=== PATIENT | male | born 1965 | race Caucasian/White ===

== ENCOUNTER 2016-09-30 22:58 | Inpatient (IN) ==
[2016-09-30] MEDS ORDERED: methylPREDNISolone SOD SUC 125 MG/2 ML VIAL IV STA (23:44)
--- NOTE | 2016-09-30 23:58 | Emergency Department Note ---
Arrival - Arrival Chief Complaint: Syncope Stated Complaint: sob, syncope, dizzy ED Nursing Triage Note: Patient to room via ems. EMS states that they were called for differculty breathing. They state that then first responders on scence told ems that patient was unresponsive. upon ems arrival EMT-P states patient was moving eyes around and when arm was picked up it went to the side and did not hit his face. patient has ETOH on board and is currently out of his medications. patient is complaining of being dizzy, having bodyaches, and body cramps. Mode of Arrival: Stretcher Limitations: No Limitations Source: Patient, Family Time Seen by Provider: 09/30/16 23:12 - History of Present Illness HPI Narrative: The patient complains of a syncopal episode tonight around 830. States he got up from the table, became short of breath and passed out for an undetermined time. The states he was "in and out of it." The patient has had problems with similar episodes for approximately 5 years. No known diagnosis. He did have some vomiting today at lunch and some cramping and muscle spasms shortly after that. He has a history of COPD and also had to take several nebulizers today. He is chronically short of breath but these syncopal episodes appear to be associated with increased shortness of breath. He was recently put on prednisone for an upper respiratory infection/bronchitis and had just finished that. He reports no fever. He has had no chest pain or diaphoresis. The nausea and vomiting earlier today were not associated closely with this episode. He does drink alcohol and states he was drinking "one beer" at the time this happened. Allergies/Adverse Reactions: Allergies Allergy/AdvReac Type Severity Reaction Status Date / Time Penicillins Allergy RASH Verified 10/19/14 00:04 Home Medications: Home Medications Medication Instructions Recorded Confirmed Type Ipratropium/Albuterol Sulfate 4 gm IH Q12HR #1 aer.w.adap 10/24/14 07/04/15 Rx [Combivent Respimat Inhal [place]] Pantoprazole Tab [Protonix Tab] 40 mg PO DAILY #10 tablet 10/24/14 07/04/15 Rx metFORMIN [Glucophage] 850 mg PO BID W/MEALS #60 tablet 10/24/14 07/04/15 Rx predniSONE TAB [PredniSONE] 10 mg PO DAILY #12 tablet 01/12/16 Rx Review of System - Review of System 12 point system: reviewed and no additional remarkable complaints except as stated - Review of System Constitutional: Absent: chills, diaphoresis, fever Head/Ears/Nose/Throat: Absent: nasal drainage, sore throat Respiratory: Present: cough, respiratory distress, wheezing Cardiovascular: Present: dyspnea on exertion. Absent: chest pain, palpitations Gastrointestinal: Present: nausea, vomiting. Absent: abdominal pain Musculoskeletal: Present: back pain, leg pain, neck pain Medical,Surgical,& Family Hx - Medical History Cardio: History of: Hypertension, [place] (questionable), PVD Endocrine: History of: Diabetes Mellitus (IDDM), Diabetes Mellitus (NIDDM), Dyslipidemia Rheumatology: History of;: Fibromyalgia Respiratory: History of: Bronchitis, COPD, Obstructive Sleep Apnea Genitourinary: History of: Prostate Problems - Surgical History Cardiac Surgeries: Sugical HX of: Cardiac Catheterization (questionable) - Family History Family History: Reports;: Family Cancer, Family Diabetes, Family Hypertension - Social History Smoking Status: Smoker, status unknown Frequency of Alcohol Use: Frequently Type of Drug Use: None Exam Physical Examination: GENERAL: Alert. No acute distress. HEENT: Normocephalic and atraumatic. PERRLA. EOMI. There is no nasal drainage. No pharyngeal erythema or exudate. NECK: Normal inspection. Supple. No lymphadenopathy or meningismus. LUNGS: No respiratory distress. Decreased air movement and heavy wheezing bilaterally. HEART: Regular rate and rhythm. ABDOMEN: Soft, nontender and nondistended with normoactive bowel sounds. BACK: Normal inspection. SKIN: Color normal. Warm and dry. EXTREMITIES: Nontender. Normal range of motion. No pedal edema. NEUROLOGICAL/PSYCHIATRIC: Alert and oriented 3 with normal mood and affect. Cranial nerves normal. No motor or sensory deficit. Vital Signs: Vital Signs Temperature 97.5 F L 09/30/16 23:18 Pulse Rate 69 09/30/16 23:18 Respiratory Rate 20 09/30/16 23:18 Blood Pressure 139/89 09/30/16 23:18 O2 Sat by Pulse Oximetry 98 09/30/16 22:58 Course - Reevaluation(s) Reevaluation #1: Patient has remained stable in the ER. Cardiac workup is negative. He feels somewhat better after the nebulizers and his wheezing sounds much better, however, he does still have significant wheezing and given his syncopal episode I think admission for observation and further nebs and steroids is warranted. I discussed the patient with Dr. Burr who will see him in the ER and admit. Time: 01:47 Results - Labs CBC & BMP: 10/01/16 00:22 10/01/16 00:22 Lab Results: I have reviewed the patients labs Labs: Laboratory Tests 09/30/16 09/30/16 10/01/16 00:22 Unknown 00:22 INR 1.1 D-Dimer, Quantitative <= 0.5 Troponin I Ur Specific [place] 1.006 Urine Leukocytes Negative Urine RBC <1 Urine WBC 1 Urine Opiates Screen Negative Ur Barbiturates Screen Negative Ur Phencyclidine Scrn Negative U Amphetamine/Methamph Negative U Benzodiazepines Scrn Negative U Cocaine Metab Screen Negative U Cannabinoids Screen Negative Serum Alcohol 10/01/16 10/01/16 00:22 00:22 INR D-Dimer, Quantitative Troponin I 0.027 Ur Specific [place] Urine Leukocytes Urine RBC Urine WBC Urine Opiates Screen Ur Barbiturates Screen Ur Phencyclidine Scrn U Amphetamine/Methamph U Benzodiazepines Scrn U Cocaine Metab Screen U Cannabinoids Screen Serum Alcohol < 15 L - Impressions Chest x-ray shows no acute abnormality. CT of head shows no acute intracranial abnormality. There is mucosal thickening and fluid in the paranasal sinuses suggesting sinusitis. Disposition Clinical Impression: Syncope, COPD exacerbation, Tobacco abuse, Medical non-compliance Case discussed with: patient, patient's family Disposition: Still a Patient Condition: Stable Time of Disposition: 01:50
[2016-10-01 00:37] LABS: Basophils % 0.3 % (0.0-0.8); Eosinophils # 0.2 10*3/uL (0.0-0.87); Eosinophils % 2.2 % (0.00-10.9); Hematocrit 37.2 VOL% (42.0-52.0); Hemoglobin 12.2 GM/DL (14.0-18.0); Immature Granulocytes % 0.1 %; Immature Granulocytes Absolute 0.01 #; Lymphocytes # 2.2 10*3/uL (1.4-4.0); Lymphocytes % 33.2 % (21.2-54.2); Mean Corpuscular HGB Conc 32.8 GM/DL (32-36); Mean Corpuscular Hemoglobin 33 PG (27-34); Mean Corpuscular Volume 101.4 FL (87-102); Mean Platelet Volume 10.1 FL (9.6-12.0); Monocytes # 0.3 10*3/uL (0.11-0.8); Monocytes % 4.3 % (1.7-12.7); Neutrophils % 59.9 % (38.7-73.9); Platelet Count 155 T/CUMM (130-400); Red Blood Count 3.67 MC/CUMM (3.8-5.5); Red Cell Distribution Width 13.5 % (9.3-17.3); White Blood Count 6.7 T/CUMM (4-12)
[2016-10-01 00:45] LABS: Apearance,Urine CLEAR (Clear); Bilirubin,Urine Negative (Negative); Blood, Urine Small mg/dL (Negative); Glucose,Urine (UA) Negative (Negative); Ketones,Urine Negative (Negative); Nitrite,Urine Negative (Negative); Protein,Urine Negative; RBC,Urine <1 /HPF (0-4); Urine Color Straw (Yellow); Urine Specific Gravity 1.006 (1.001-1.035); Urine Urobilinogen < 2.0 EU/DL (0.2-1.0); WBC,Urine 1 /HPF (0-6)
[2016-10-01 00:55] LABS: D-Dimer <= 0.5 MG/L FEU; INR 1.1; PT Patient Result 11.8 SECS; Partial Thromboplastin Time 27.1 SECS (0-40)
[2016-10-01 01:03] LABS: Alanine Aminotransferase 20 U/L (16-61); Albumin 3.4 G/DL (3.4-5.0); Alkaline Phosphatase 79 U/L (45-117); Aspartate Amino Transferase 18 U/L (0-37); Bilirubin,Total < 0.39 MG/DL (0.2-1.0); Blood Urea Nitrogen 14 MG/DL (7-18); Glucose 88 MG/DL (74-106); Osmolality,Calculated 285.8 MOS/KG (273-304); Potassium 3.2 MMOL/L (3.5-5.1); Sodium 144 MMOL/L (136-145); Total Protein 6.1 G/DL (6.4-8.3); Troponin I Only 0.027 NG/ML (0.00-0.045)
[2016-10-01] MEDS ORDERED: methylPREDNISolone SOD SUC 125 MG/2 ML VIAL ONE (01:15)
[2016-10-01 01:25] LABS: Barbiturates Screen,Urine Negative (Negative); Benzodiazepines Screen,Urine Negative (Negative); Cannabinoid Screen,Urine Negative (Negative); Opiate Screen,Urine Negative (Negative); Phencyclidine Screen,Urine Negative (Negative)
--- NOTE | 2016-10-01 02:33 | Hospitalist History & Physical ---
Assessment and Plan (1) History of poor circulation Status: Acute Current Visit: Yes (2) History of arthritis Status: Acute Current Visit: Yes (3) History of hypertension Status: Acute Current Visit: Yes (4) Medical non-compliance Status: Acute Current Visit: Yes (5) Acute exacerbation of chronic obstructive airways disease Status: Acute Current Visit: No (6) Hypokalemia Status: Acute Current Visit: No (7) Syncope and collapse Status: Acute Assessment and plan: Plan for this patient will be admitting him to a monitored bed. Repeat cardiac enzymes in the morning. Schedule breathing treatments and steroids for COPD exacerbation. For syncopal episode he had a CT scan of his head that showed no acute intracranial pathology initiated. Will order MRI of the head and carotid ultrasound. Patient denies any chest pain. In the syncopal episode does not seem to be related to his COPD exacerbation Current Visit: No History of Present Illness Chief complaint: Syncopal episode COPD exacerbation History of present illness: Mr. Rodríguez is a 51 year old male with past medical history significant for diabetes, COPD, fibromyalgia, chronic bronchitis, poor circulation, arthritis, hypertension and increased cholesterol who was in his normal state of health until smallpox hospital. Patient reports that he would fail outside twice. Given his age he does look like he has significant medical problems. He complains about muscle spasms all over his body. He feels short of breath and had 4 breathing treatments. [facility] out fell and hit the counter. He had no premonition that the attack was coming on. EMS was called and he did have some jerking motion about on the floor but was not significant. They brought him up to our hospital for further evaluation. Patient has multiple medical problems and is noncompliant secondary to funding source for his medications. I was consulted to admit the patient to the emergency room Home Medications Medication Instructions Recorded Confirmed Type Ipratropium/Albuterol Sulfate 4 gm IH Q12HR #1 aer.w.adap 10/24/14 07/04/15 Rx [Combivent Respimat Inhal [place]] Pantoprazole Tab [Protonix Tab] 40 mg PO DAILY #10 tablet 10/24/14 07/04/15 Rx metFORMIN [Glucophage] 850 mg PO BID W/MEALS #60 tablet 10/24/14 07/04/15 Rx predniSONE TAB [PredniSONE] 10 mg PO DAILY #12 tablet 07/05/15 Rx Allergies Allergy/AdvReac Type Severity Reaction Status Date / Time Penicillins Allergy RASH Verified 10/19/14 00:04 Medical,Surgical,& Family Hx - Medical History Cardio: History of: Hypertension, [place] (questionable), PVD Endocrine: History of: Diabetes Mellitus (IDDM), Diabetes Mellitus (NIDDM), Dyslipidemia Rheumatology: History of;: Fibromyalgia Respiratory: History of: Bronchitis, COPD, Obstructive Sleep Apnea Genitourinary: History of: Prostate Problems - Surgical History Cardiac Surgeries: Sugical HX of: Cardiac Catheterization (questionable) - Family History Family History: Reports;: Family Cancer, Family Diabetes, Family Hypertension - Social History Smoking Status: Current every day smoker Frequency of Alcohol Use: Frequently Type of Drug Use: None 12 point system: reviewed and no additional remarkable complaints except as stated Exam - Constitutional Vitals: Period Temp Pulse Resp BP Sys/Randolph Pulse Ox Last 24 Hr 97.5 F-97.8 F 69-69 20-20 139-139/89-89 98 General appearance: over weight - Head Head exam: Present: normal inspection - Eye Eye exam: Present: EOMI Pupils: Present: DONNA - ENT ENT exam: Present: normal exam - Neck Neck exam: Present: normal inspection - Respiratory Respiratory exam: Present: wheezes - Cardiovascular Cardiovascular exam: Present: regular rate and rhythm - GI/Abdominal GI/Abdominal exam: Present: normal bowel sounds - Extremities Exam Extremities exam: Present: normal inspection - Back Exam Back exam: Present: normal inspection - Neurological Exam Neurological exam: Present: alert - Psychiatric Psychiatric exam: Present: normal affect - Skin Skin exam: Present: normal color Results - Labs CBC & BMP: 10/01/16 00:22 10/01/16 00:22
[2016-10-01] MEDS ORDERED: ONDANSETRON 4 MG/2 ML VIAL IV PRN (02:35)
[2016-10-01] MEDS ORDERED: DEXTROSE 50% 25 GM/50 ML VIAL IV PRN (02:35)
[2016-10-01] MEDS ORDERED: GLUCAGON 1 MG VIAL IM PRN (02:35)
[2016-10-01] MEDS ORDERED: ALBUTEROL 2.5 MG/3 ML NEB RESP TX PRN (02:41)
[2016-10-01] MEDS ORDERED: LEVOFLOXACIN INJ 750 MG in PREMIX 1 EACH IV ONE (03:00)
[2016-10-01] MEDS ORDERED: POTASSIUM CHLORIDE 20 MEQ TABLET PO ONE ×2 (03:16→05:00)
--- NOTE | 2016-10-01 05:56 | CT Report ---
Referring physician: Torrey Wick Exam: CT brain without contrast Date: September 30, 2016 Comparison: CT brain without contrast July 04, 2015 Reason: Syncope The patient was an Emergency Department patient on September 30, 2016. Preliminary report was provided by [facility]. Technique: Axial images of the head were obtained without the use of contrast. Total DLP was 1073.1 mGy*cm. Findings: No hydrocephalus or midline shift is present. There is no evidence of recent intracranial hemorrhage, abnormal mass effect or an acute infarction. No acute osseous process is seen. There is incomplete osseous fusion of the posterior and anterior arches of C1. There is mucosal thickening within the right ethmoid air cells and fluid within the maxillary sinuses bilaterally. The mastoid air cells are clear. Impression: 1. No acute intracranial process is identified. 2. Sinusitis as above. The CT exam was performed using one or more of the following dose reduction techniques: Automated exposure control and adjustment of the mA and/or kV according to patient size. PROCEDURE INTERPRETED AT [facility] DEPARTMENT OF RADIOLOGY Final Report Signed by: Dr. Denice Laboy
--- NOTE | 2016-10-01 07:02 | XRay Report ---
Referring Physician: Torrey Wick Exam: XR chest 1V portable Date: September 30, 2016 at 11:53 PM Reason: Shortness of breath Comparison: Chest one view portable July 04, 2015 Findings: The cardiac silhouette is normal in size for the portable technique. There is minimal atelectasis at the lung bases. No pneumothorax or pleural effusion is identified. No acute osseous process is seen. Impression: Minimal atelectasis at the lung bases. PROCEDURE INTERPRETED AT [facility] DEPARTMENT OF RADIOLOGY Final Report Signed by: Dr. Denice Laboy
[2016-10-01 07:05] LABS: Basophils % 0.2 % (0.0-0.8); Eosinophils % 0.4 % (0.00-10.9); Hematocrit 38.8 VOL% (42.0-52.0); Hemoglobin 13.1 GM/DL (14.0-18.0); Immature Granulocytes % 0.6 %; Immature Granulocytes Absolute 0.03 #; Lymphocytes # 0.5 10*3/uL (1.4-4.0); Lymphocytes % 9.5 % (21.2-54.2); Mean Corpuscular HGB Conc 33.8 GM/DL (32-36); Mean Corpuscular Hemoglobin 33 PG (27-34); Mean Corpuscular Volume 97.5 FL (87-102); Monocytes # 0.1 10*3/uL (0.11-0.8); Neutrophils # 4.6 10*3/uL (1.4-7.4); Neutrophils % 88.3 % (38.7-73.9); Platelet Count 181 T/CUMM (130-400); Red Blood Count 3.98 MC/CUMM (3.8-5.5); Red Cell Distribution Width 13.3 % (9.3-17.3); White Blood Count 5.3 T/CUMM (4-12)
[2016-10-01 07:33] LABS: Calcium 8.5 MG/DL (8.5-10.1); Osmolality,Calculated 284.3 MOS/KG (273-304)
[2016-10-01 07:37] LABS: Troponin I Only 0.017 NG/ML (0.00-0.045)
--- NOTE | 2016-10-01 07:39 | EKG Report ---
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
[2016-10-01] MEDS: ALBUTEROL/IPRATROPIUM 3 ML NEB RESP TX SCH ×3 (07:40→19:11)
--- NOTE | 2016-10-01 09:12 | Ultrasound Report ---
Exam: Carotid ultrasound Date: 10/01/2016 Comparison: None Technique: Duplex scans of the carotid and vertebral arteries using B-mode/Rivera scale imaging and Doppler spectral analysis and color flow. Reason: Syncope Findings: The right ICA measures 5.3 mm in diameter and the left ICA measures 5.1 mm in diameter. Color-flow documented in the visualized arteries. The peak systolic velocities are as follows: Right CCA: 92.4 cm/s Right ICA: 106.8 cm/s Right ECA: 85.9 cm/s Left CCA: 98.5 cm/s Left ICA: 69.8 cm/s Left ECA: 84.2 cm/s The peak systolic ICA/CCA velocity ratios are as follows: 1.2 on the right and 0.7 on the left. Antegrade flow is present in both vertebral arteries. Impression:[0-15% stenosis in both internal carotid arteries with no significant plaque formation. Antegrade flow in both vertebral arteries.] The Society of Radiologists in Ultrasound consensus conference criteria was used. The Ultrasound images were captured and stored. PROCEDURE INTERPRETED AT [facility] DEPARTMENT OF RADIOLOGY Final Report Signed by: Dr. Kylah De Jesus
[2016-10-01] MEDS: ENOXAPARIN 40 MG/0.4 ML SYRINGE SUBCUT SCH (09:27)
[2016-10-01] MEDS: methylPREDNISolone SOD SUC 40 MG/1 ML VIAL IV SCH ×3 (09:27→21:27)
[2016-10-01] MEDS: INSULIN REGULAR 100 UNIT/ML SUBCUT SCH ×4 (09:28→21:27)
[2016-10-01] MEDS: PANTOPRAZOLE 40 MG TABLET PO SCH (09:28)
[2016-10-01] MEDS: BUDESONIDE/FORMOTEROL 160-4.5 INHALER 6 GM INH SCH ×2 (10:20→21:30)
--- NOTE | 2016-10-01 11:43 | XRay Report ---
Exam: XR orbits for mri Date: 10/01/2016 10:54 AM Comparison: None Indication: MRI clearance Technique:[3 view orbits] Findings: No metallic foreign body is identified in the orbital location. Air-fluid levels are noted in the maxillary sinuses with less prominent mucosal thickening/fluid in the other paranasal sinuses. Impression: No metallic foreign body is identified in the orbital location. Sinusitis. PROCEDURE INTERPRETED AT [facility] DEPARTMENT OF RADIOLOGY Final Report Signed by: Dr. Kylah De Jesus
--- NOTE | 2016-10-01 14:06 | Magnetic Resonance Report ---
Exam: MR head/brain wo con Date: 10/01/2016 4:00 AM Comparison: CT brain 09/30/2016 Indication: Syncope, head injury Technique:[Multiple acquisitions were obtained including sagittal T1, coronal T2, and axial ADC, diffusion, FLAIR, T2, and T1 scans without contrast. Scans were obtained on an open 1.2 Dariela magnet.] Findings: The ventricles are normal in size with no midline displacement. The pituitary has a normal appearance and the cerebellar tonsils are normal in their location. No acute infarction is identified on the diffusion scans. No evidence of hemorrhage, mass, or extracerebral collection. Enlarged perivascular spaces are noted which represent a normal variant. Mucosal thickening with air-fluid levels measuring 11 mm on the right and 15 mm on the left in the maxillary location. There is additional mucosal thickening and fluid in the ethmoid air cells and right sphenoid sinus. No acute findings in the orbits or [place] of [place]. Minimal fluid in the left mastoid air cells. Impression: No acute intracranial pathology identified. Sinusitis with nonspecific minimal free fluid in the left mastoid air cells. PROCEDURE INTERPRETED AT [facility] DEPARTMENT OF RADIOLOGY Final Report Signed by: Dr. Kylah De Jesus
[2016-10-01] MEDS: NICOTINE 21 MG/24 HR PATCH TRANSDERM SCH (15:16)
[2016-10-01] MEDS ORDERED: SODIUM CHLORIDE 0.9% 500 ML IV ONE (17:19)
--- NOTE | 2016-10-01 17:24 | Hospitalist Progress Note ---
Assessment and Plan (1) COPD exacerbation Status: Acute Assessment and plan: Duo nebs, steroids, antibiotics Current Visit: Yes (2) Uncontrolled diabetes mellitus Status: Acute Assessment and plan: Restart metformin diabetic education Current Visit: Yes (3) Syncope Status: Acute Assessment and plan: MRI and carotid Doppler unremarkable, will get echo and have cardiology see in a.m. Current Visit: Yes (4) Obstructive sleep apnea Status: Acute Assessment and plan: Needs CPAP at night. Current Visit: Yes Hospitalist: Subjective Interval history: Patient says he has recurrent episodes of syncope, he does need a CPAP machine but cannot afford it. He feels he needs oxygen at home but cannot afford it. He is still smoking he did ask for a nicotine patch. He looks older than stated age. He is very hungry and wants to eat. Will have cardiology evaluate him tomorrow. Exam - Constitutional Vitals: Period Temp Pulse Resp BP Sys/Randolph Pulse Ox Last 24 Hr 97.6 F-97.8 F 61-71 16-18 119-142/70-84 92-99 Exam: Heart Rate-[RRR] Lungs-[tight and wheezy] GI-[+bs soft, NT] Ext-[no edema] Neuro [Motor 5/5], [alert and oriented times 3] psych [normal mood and affect] General [no acute distress] Results - Labs CBC & BMP: 10/01/16 06:38 10/01/16 06:38 Lab Results: I have reviewed the past 24 hour labs - Diagnostic Findings Procedure: Chest x-ray: report reviewed by me (COPD), MRI: report reviewed by me (No acute stroke), Ultrasound: report reviewed by me (Less than 15% stenosis)
[2016-10-01] MEDS: metFORMIN 850 MG TABLET PO SCH (18:37)
[2016-10-01] MEDS: SODIUM CHLORIDE 0.9% 1,000 ML IV SCH (21:27)
[2016-10-01] MEDS: LEVOFLOXACIN INJ 750 MG in PREMIX 1 EACH IV SCH (21:28)
--- NOTE | 2016-10-01 21:29 | Ultrasound Report ---
US carotid duplex BI Indication: Syncope. CAROTID ULTRASOUND Comparison: Ultrasound carotids obtained 12 hours earlier. Findings: Grayscale, color Doppler and pulsed Doppler interrogation of the carotid and vertebral arteries performed. Severity of stenosis based on flow velocity measurements using NASCET criteria. Distal right ICA diameter: 5.0 mm Distal left ICA diameter: 5.1 mm Peak systolic flow velocities in centimeters per second are as follows: Right: CCA: 92 cm/s Proximal ICA: 87 Distal ICA: 103 ICA/CCA ratio: 1.1 Left: CCA: 85 cm/s Proximal ICA: 43 Distal ICA: 68 ICA/CCA ratio: 0.8 External carotid arteries: Both are patent with antegrade flow. Vertebral arteries: Both are patent with antegrade flow. Grayscale and color Doppler images: No significant focal plaque deposition identified, with normal color Doppler flow present. Pulse Doppler waveform interrogation: No significant spectral broadening. Impression: No hemodynamically significant stenosis. PROCEDURE INTERPRETED AT [facility] DEPARTMENT OF RADIOLOGY Final Report Signed by: Sumeet Uribe M.D.
[2016-10-02] MEDS: SODIUM CHLORIDE 0.9% 1,000 ML IV SCH ×3 (00:27→16:22)
[2016-10-02] MEDS: ALBUTEROL/IPRATROPIUM 3 ML NEB RESP TX SCH ×5 (00:57→23:59)
[2016-10-02] MEDS: methylPREDNISolone SOD SUC 40 MG/1 ML VIAL IV SCH ×4 (01:58→20:24)
--- NOTE | 2016-10-02 06:31 | EKG Report ---
Stationary ECG Study [facility] Test Date: 10/01/2016 5:52:16 PM Pat Name: HECTOR SIDHU Department: Room: 544 Gender: M Charrer: ERIN : 1965 Requested by: Marion Salazar Order Number: [id number] Reading MD: DENNIS GARNER Intervals [place] Rate: 62 P: 67 NE: 152 QRS: 53 QRSD: 89 T: 64 QT: 377 QTc: 382 Interpretive Statements SINUS RHYTHM Electronically Signed On 10-02-16 11:29:27 CDT by DENNIS GARNER [email or web address]
--- NOTE | 2016-10-02 08:07 | EKG Report ---
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
[2016-10-02] MEDS: NICOTINE 21 MG/24 HR PATCH TRANSDERM SCH (08:59)
[2016-10-02] MEDS: INSULIN REGULAR 100 UNIT/ML SUBCUT SCH ×4 (08:59→20:23)
[2016-10-02] MEDS: metFORMIN 850 MG TABLET PO SCH ×2 (09:00→17:50)
[2016-10-02] MEDS: ENOXAPARIN 40 MG/0.4 ML SYRINGE SUBCUT SCH (09:00)
[2016-10-02] MEDS: PANTOPRAZOLE 40 MG TABLET PO SCH (09:01)
[2016-10-02] MEDS: BUDESONIDE/FORMOTEROL 160-4.5 INHALER 6 GM INH SCH ×2 (09:03→20:22)
--- NOTE | 2016-10-02 12:30 | Hospitalist Progress Note ---
Assessment and Plan (1) COPD exacerbation Status: Chronic Assessment and plan: Improving continue duo nebs, steroids, antibiotics Current Visit: Yes (2) Uncontrolled diabetes mellitus Status: Acute Assessment and plan: Continue metformin, diabetic education Current Visit: Yes (3) Syncope Status: Acute Assessment and plan: Cardiology seen patient this morning and will give opinion. Echo pending Current Visit: Yes (4) Obstructive sleep apnea Status: Chronic Assessment and plan: Dr. Jackson seeing patient now Current Visit: Yes Hospitalist: Subjective Interval history: Patient had a lot of headaches due to untreated sleep apnea. He also takes BCs at least 3 times a day for his headaches. Dr. Jackson is seen him now. Patient has had a sleep study approximately 3 years ago at another institution. Cardiology seen patient today for a syncope workup. So far everything has been normal. I told him I would give him [place] for his headache and I prefer him taking that rather than BCs. Exam - Constitutional Vitals: Period Temp Pulse Resp BP Sys/Randolph Pulse Ox Last 24 Hr 97.4 F-98.6 F 62-103 18-25 125-154/71-93 96-100 Exam: Heart Rate-[RRR] Lungs-[few wheezes better air movement today] GI-[+bs soft, NT] Ext-[no edema] Neuro [Motor 5/5], [alert and oriented times 3] psych [normal mood and affect] General [no acute distress] Results - Labs CBC & BMP: 10/01/16 06:38 10/01/16 06:38 Lab Results: I have reviewed the past 24 hour labs
--- NOTE | 2016-10-02 13:02 | Sleep Medicine Consult ---
Assessment and Plan (1) Obstructive sleep apnea Status: Chronic Assessment and plan: I do not think it is clear if this patient has had a diagnosis of obstructive sleep apnea definitively determined. He is uncertain of whether he has had previous sleep study. We will obtain HST evaluation on him this evening and follow-up on those results. Current Visit: Yes (2) COPD exacerbation Status: Chronic Assessment and plan: Because of his underlying COPD, if he does have sleep apnea he is more likely to have more severe O2 desaturation. Current Visit: Yes History of Present Illness Chief complaint: Sleep apnea History of present illness: Mr. Rodríguez is a 51 year old male with severe COPD. The hospitalist service consulted sleep medicine for possible intervention for sleep apnea. There was some question of whether he had been diagnosed with sleep apnea in the past. He had been admitted for COPD and syncope at [facility] in the past and apparently was treated with oxygen or CPAP. He is uncertain. He cannot recall whether he ever had sleep evaluation. He does snore loudly and does stop breathing during his sleep. He does have difficulty sleeping. He has a very irregular sleep schedule, going to sleep anywhere from 8:00 to 2 or 3 in the morning but usually arise in between 5 and 6 each morning. He does fight fatigue and sleepiness during the day. He does have a history of COPD and continues to smoke one half pack per day. Home Medications Medication Instructions Recorded Confirmed Type Ipratropium/Albuterol Sulfate 4 gm IH Q12HR #1 aer.w.adap 10/24/14 10/01/16 Rx [Combivent Respimat Inhal [place]] Pantoprazole Tab [Protonix Tab] 40 mg PO DAILY #10 tablet 10/24/14 10/01/16 Rx metFORMIN [Glucophage] 850 mg PO BID W/MEALS #60 tablet 10/24/14 10/01/16 Rx Albuterol Neb [Proventil Neb] 1.25 mg RESP TX Q4H PRN 10/01/16 10/01/16 History Meloxicam [Mobic] 7.5 mg PO DAILY PRN 10/01/16 10/01/16 History Potassium Chloride [K-Tab ER] 20 meq PO DAILY 10/01/16 10/01/16 History Allergies Allergy/AdvReac Type Severity Reaction Status Date / Time Penicillins Allergy RASH Verified 10/19/14 00:04 Review of systems: Notable for symptoms of dyspnea on exertion, cough, and awakening from sleep short of breath. Exam (Pulmonay) H&P - Constitutional Vitals: Period Temp Pulse Resp BP Sys/Randolph Pulse Ox Last 24 Hr 97.4 F-98.6 F 62-103 18-25 125-154/71-93 96-100 Exam: He is alert and responsive in no acute distress. Pupils equal round reactive to light and accommodation. Extraocular movements intact. Oropharynx with a class III Mallampati exam. Neck is supple without adenopathy or thyromegaly. No supraclavicular adenopathy is noted. Chest with bilateral wheezes with scattered mild rhonchi. Cardiac exam reveals a regular rhythm without murmur or gallop. Abdomen soft nontender without palpable hepatosplenomegaly or mass. Extremities are without clubbing, cyanosis, or edema. Neurologically, he is grossly intact. He moves all extremities with good strength and ambulates with a normal gait. Medical,Surgical,& Family Hx - Medical History Cardio: History of: Hypertension, [place] (questionable), PVD Endocrine: History of: Diabetes Mellitus (IDDM), Diabetes Mellitus (NIDDM), Dyslipidemia Rheumatology: History of;: Fibromyalgia Respiratory: History of: Bronchitis, COPD, Obstructive Sleep Apnea Genitourinary: History of: Prostate Problems Musculoskeletal: History of: Back/Neck Problems - Surgical History Cardiac Surgeries: Sugical HX of: Cardiac Catheterization (questionable) Thoracic Surgeries: Patient denies;: Organ Transplant, Lobectomy Neurologic Surgeries: Patient denies: Neurologic Surgery HEENT Surgeries: Patient denies: Tonsilectomy & Adenoidectomy - Family History Family History: Reports;: Family Cancer, Family Diabetes, Family Hypertension - Social History Smoking Status: Current every day smoker Frequency of Alcohol Use: Frequently Type of Drug Use: None Results - Labs CBC & BMP: 10/01/16 06:38 10/01/16 06:38 Lab Results: I have reviewed the past 24 hour labs
--- NOTE | 2016-10-02 14:37 | ECHO Report ---
Danny Rodríguez Exam Date: 10/02/2016 09:11 Referring Physician: Technologist: Ruchi Davidson LRIRIS Age: 51 Ht (in): 69 Wt (lb): 173 Gender: M Exam Location: [facility] Echo Indications: COPD, Hypokalemia, syncope, diabetes, DEANA, HTN BP: 128 / 71 HR: 78 Rhythm: Sinus Technical Quality: IMPRESSIONS Normal left ventricular size and systolic function, left ventricular ejection fraction is estimated at 55-60 %. Trace mitral valve regurgitation. Trace tricuspid valve regurgitation. MEASUREMENTS (Male / Female) Normal Values 2D ECHO LV Diastolic Diameter PLAX 4.9 cm 4.2 - 5.9 / 3.9 - 5.3 cm LV Systolic Diameter PLAX 3.3 cm LV Fractional Shortening PLAX 32.5 % IVS Diastolic Thickness 1.6 cm 0.6 - 1.0 / 0.6 - 0.9 cm LVPW Diastolic Thickness 1.2 cm 0.6 - 1.0 / 0.6 - 0.9 cm RV Internal Dim ED PLAX 2.3 cm Aortic Root Diameter 2.6 cm LA Systolic Diameter LX 3.3 cm 3.0 - 4.0 / 2.7 - 3.8 cm DOPPLER TR Peak Velocity 183.0 cm/s TR Peak Gradient 13.4 mmHg FINDINGS Left Ventricle Normal left ventricular size and systolic function, left ventricular ejection fraction is estimated at 55-60 %. Right Ventricle Normal right ventricular size. Right Atrium Normal right atrial size. Left Atrium Normal left atrial size. Mitral Valve Structurally normal mitral valve. Trace mitral valve regurgitation. Aortic Valve Grossly normal aortic valve. Tricuspid Valve Morphologically normal tricuspid valve. Trace tricuspid valve regurgitation. Tricuspid regurgitation velocities suggest a PAP of 13.4 mmHg + RAP. Pulmonic Valve Morphologically normal pulmonic valve. Pericardium No pericardial effusion. Aorta Normal size aortic root and proximal ascending aorta. Chin Florez (Electronically Signed) Final Date: 02 October 2016 14:36
--- NOTE | 2016-10-02 16:24 | Cardiology Consult Note ---
I, Adina Tang RN, am scribing for, and in the presence of, Chin Florez MD 16:16. Assessment and Plan - Time spent with patient Time spent with patient: Greater than 30 minutes (due to assessment, planning, documentation, medication review) (1) Syncope Status: Acute Assessment and plan: Diagnostic workup thus far has been nonrevealing. EKG negative for arrhythmia or ischemic change. Echocardiogram was essentially normal. Cardiac enzymes have been negative. Other labs and workup of also been benign. Based on the prolonged period of time that the patient was out/disoriented, I am more suspicious of hypoglycemia (or perhaps even hyperglycemia) or even a seizure. Generally cardiac syncope does not last for 30 minutes to an hour with persistent disorientation as the patient and his significant other describe. This problem has been recurrent and long-standing, dating back 4 years. Previous workups have similarly been unrevealing. From my standpoint, I think he could be discharged home, but I think it would be appropriate to get a 30 day event recorder to look for an occult arrhythmia as a contributor factor. It would probably be appropriate to have a neurology evaluation if he has not had this recently. Current Visit: Yes (2) COPD exacerbation Status: Chronic Assessment and plan: The patient has a diffuse wheeze. I will defer management to the admitting team. Current Visit: Yes (3) History of hypertension Status: Chronic Assessment and plan: Overall, blood pressure is fairly well controlled. 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 Rodríguez is a 51 year old white male not routinely followed by cardiology. Past medical history includes diabetes, COPD, fibromyalgia, chronic bronchitis, arthritis, hypertension, hyperlipidemia, and chronic tobaccoism. He is admitted after experiencing a syncopal episode, and he is also being treated for COPD exacerbation. Patient has been admitted at least 2 times [facility] in the last 2 years for similar complaint. Diagnostic workup in the past for source of syncope has been unrevealing. This admission, he has had carotid Doppler ultrasound, head CT, and MRI of the brain. These studies have also been negative for acute finding. Apparently, he has required assistance from psych social worker in the past regarding funding medical care outside acute setting. This is been provided for him in the past. This admission, he reports that he needs a CPAP machine but he cannot afford it. Also reports that he has very "poor vision" and needs glasses but is unable to afford them. Patient reports recurring syncope beginning approximately 5 years ago, but this has worsened in the past 2 years. Reports that he experiences dizziness "24 hours a day, even at night". There is no specific pattern to syncopal episodes , and he cannot correlate any specific behaviors with episodes. The symptoms are sporadic and not specifically associated with any medication or other exacerbating factor. With his most recent episode, he had earlier in the day he experienced nausea and vomiting after eating a sandwich. He had just drank a few sips of beer and got up to go to the bathroom when he collapsed. His reports that he was difficult to arouse for a period of one half to one hour. She states that it took about 35 minutes for EMS to arrive and it during that time he remained out of it. He did have a small amount of "jerking" in his arms and legs, though he has no previous history of seizure disorder. They did not check his blood sugar during the spell. Apparently he has checked his blood sugar during previous spells and he has been in the 70 to low 100s. He tells me that it has never been way to lower way too high. In addition, he has a Severe, nonproductive cough and sometimes his symptoms seem to be precipitated by coughing fits. Today he states that he previously smoked 3-1/2 packs per day until recently when he was able to reduce this to one half pack per day. Per review of old medical records, he has stated the same during last 2 hospitalizations. Twelve-lead EKG displays sinus rhythm without ectopy or ischemic change. Systolic BP ranging 130-155 mmHg. Echocardiogram shows normal left ventricular function. There is no significant valvular heart disease or other abnormality identified on the echo. Multiple sets of cardiac enzymes have been negative. He does not have any typical anginal symptoms. He tells me that he has lost some of his social support income and that he needs documentation from a Dr. about his blackout spells in order to have these restored. He tells me that he has been out of all of his medications for about a month. Labs reviewed. Hypokalemia yesterday with potassium level of 3.2. Improved after p.o. supplements administered, and follow-up potassium is 4.0. Otherwise , lab work is unremarkable. Current Medications Hydrocodone Bitart/Acetaminophen ([place] 7.5-325) 1 tablet PO Q4H PRN PRN Reason: Pain Moderate (4-7) Last Admin: 10/01/16 12:46 Dose: 1 tablet Hydrocodone Bitart/Acetaminophen ([place] 10-325) 1 tablet PO Q4H PRN PRN Reason: Pain Moderate (4-7) Albuterol Sulfate (Proventil Neb) 2.5 mg RESP TX RT Q4H PRN PRN Reason: Shortness of Breath/Wheezing Albuterol/Ipratropium (Duoneb) 3 ml RESP TX RT Q6H [facility] Last Admin: 10/02/16 08:14 Dose: 3 ml Budesonide/Formoterol Fumarate (Symbicort 160-4.5) 2 puff INH BID [facility] Last Admin: 10/02/16 09:03 Dose: 2 puff Dextrose/Water (D50) 25 gm IV PRN PRN PRN Reason: Hypoglycemia with IV access Enoxaparin Sodium (Lovenox) 40 mg SUBCUT Q24H [facility] Last Admin: 10/02/16 09:00 Dose: 40 mg Glucagon () 1 mg IM PRN PRN PRN Reason: Hypoglycemia w/o IV access Levofloxacin/Dextrose 750 mg/ (Premix) 150 mls @ 100 mls/hr IV BEDTIME [facility] Last Admin: 10/01/16 21:28 Dose: 100 mls/hr Sodium Chloride (Ns) 1,000 mls @ 150 mls/hr IV .Q6H40M [facility] Last Admin: 10/02/16 06:13 Dose: 150 mls/hr Insulin Human Regular (Humulin R) 0 unit SUBCUT ACHS [place] PRN Reason: Protocol Last Admin: 10/02/16 08:59 Dose: 6 unit Metformin HCl (Glucophage) 850 mg PO BID W/MEALS [facility] Last Admin: 10/02/16 09:00 Dose: 850 mg Methylprednisolone Sodium Succinate (Solumedrol) 40 mg IV Q6H [facility] Last Admin: 10/02/16 09:02 Dose: 40 mg Nicotine (Nicoderm Cq 21) 1 patch TRANSDERM DAILY [facility] Last Admin: 10/02/16 08:59 Dose: 1 patch Ondansetron HCl (Zofran Inj) 4 mg IV Q4H PRN PRN Reason: Nausea Pantoprazole Sodium (Protonix Tab) 40 mg PO DAILY [facility] Last Admin: 10/02/16 09:01 Dose: 40 mg CC: Marion Manuel MD - Home Medications and Allergies Home Medications: Home Medications Medication Instructions Recorded Confirmed Type Ipratropium/Albuterol Sulfate 4 gm IH Q12HR #1 aer.w.adap 10/24/14 10/01/16 Rx [Combivent Respimat Inhal [place]] Pantoprazole Tab [Protonix Tab] 40 mg PO DAILY #10 tablet 10/24/14 10/01/16 Rx metFORMIN [Glucophage] 850 mg PO BID W/MEALS #60 tablet 10/24/14 10/01/16 Rx Albuterol Neb [Proventil Neb] 1.25 mg RESP TX Q4H PRN 10/01/16 10/01/16 History Meloxicam [Mobic] 7.5 mg PO DAILY PRN 10/01/16 10/01/16 History Potassium Chloride [K-Tab ER] 20 meq PO DAILY 10/01/16 10/01/16 History Allergies/Adverse Reactions: Allergies Allergy/AdvReac Type Severity Reaction Status Date / Time Penicillins Allergy RASH Verified 10/19/14 00:04 - Constitutional Constitutional: Present: stops breathing during sleep. Absent: anorexia, chills , daytime sleepiness, fatigue, fever(s), frequent falls, increased appetite, weakness, weight gain, weight loss - EENT Eyes: Present: blurry vision, requires corrective lense (Reports he is unable to acquire these due to finances) Ears: Absent: decreased hearing, ear pain Nose, mouth and throat: Absent: dysphagia, epistaxis, nasal congestion, neck pain, throat swelling, tongue swelling, vertigo - Cardiovascular Cardiovascular: Present: dyspnea. Absent: chest pain at rest, chest pain with activity, claudication, diaphoresis, edema, radiating jaw, neck or arm pain, lightheadedness, orthopnea, palpitations, PND - Respiratory Respiratory: Present: cough, dyspnea, wheezing. Absent: hemoptysis, dyspnea on exertion, pain on inspiration, change in phlegm color - Gastrointestinal Gastrointestinal: Absent: abdominal pain, bloating, constipation, diarrhea, dysphagia, heartburn, hematemesis, hematochezia, melena, nausea, vomiting - Genitourinary Genitourinary: Absent: difficulty urinating, dysuria, flank pain - Musculoskeletal Musculoskeletal: Present: arthralgias, back pain, myalgias. Absent: limited range of motion - Neurological Neurological: Absent: abnormal gait, abnormal speech, confusion, dizziness, frequent falls, headache(s), syncope, tremor(s) - Psychiatric Psychiatric: Absent: anxiety, depression - Endocrine Endocrine: Absent: cold intolerance, heat intolerance - Hematologic/Lymphatic Hematologic/Lymphatic: Absent: easy bleeding, easy bruising Medical,Surgical,& Family Hx - Medical History Cardio: History of: Hypertension, PVD No history of: Cardiac Dysrhythmia, CHF, CAD, Valvular Heart Disease Psychological: No history of: Anxiety Disorders, Depression Neurology: No history of: Dementia, Seizures, TIA Endocrine: History of: Diabetes Mellitus (IDDM), Diabetes Mellitus (NIDDM), Dyslipidemia Rheumatology: History of;: Fibromyalgia Respiratory: History of: Bronchitis, COPD, Obstructive Sleep Apnea No history of: Pulmonary Hypertension Renal: No history of: Renal Failure Genitourinary: History of: Prostate Problems Gastrointestinal: History of: GERD No history of: Gastrointestinal Bleed, Hepatitis Musculoskeletal: History of: Back/Neck Problems, Musculoskeletal Problems Hematology: No history of: Anemia, Blood Transfusion Reaction Other: No history of: Cancer - Surgical History Thoracic Surgeries: Patient denies;: Organ Transplant, Lobectomy Neurologic Surgeries: Patient denies: Neurologic Surgery HEENT Surgeries: Patient denies: Tonsilectomy & Adenoidectomy - Family History Family History: Reports;: Family Cancer, Family Diabetes, Family Heart Disease ( Brotherdied at age 49 sudden, massive heart attack), Family Hypertension - Social History Smoking Status: Current every day smoker Frequency of Alcohol Use: Frequently Type of Drug Use: None Functional capacity: independent ambulation Physical Examination Vital Signs Temp Pulse Resp BP Pulse Ox 97.8 F 69 20 139/89 98 09/30/16 22:58 09/30/16 22:58 09/30/16 22:58 09/30/16 22:58 09/30/16 22:58 General: Present: No Apparent Distress, Other (disheveled) HEENT: Present: PERRL, Normocephaly, Mucus Membranes Moist Neck: Present: Supple Neck, Midline Trachea, No JVD/HJR, No Masses, No Bruit Cardiac: Present: Reg Rate and Rhythm. Absent: Audible Murmur, Tachycardia, Bradycardia Lungs: Present: Decreased Breath Sounds, Wheezes (Throughout), No Rales, No Rhonchi. Absent: Oxygen Neuro: Present: Grossly Intact. Absent: Weakness, Resting Tremor, Essential Tremor Abdomen: Present: Soft, Active Bowel Sounds. 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 Absent: Rash, Mottled Musculoskeletal: Present: No Fluid Collection, Normal Range of Motion Extremities: Present: No Clubbing, No Cyanosis, No Edema, Normal Upper Extr. Pulses (2+ bilateral), Normal Lower Extr. Pulses (2+ bilaterally), Capillary Refill (normal) Result/EKG - Labs CBC & BMP: 10/01/16 06:38 10/01/16 06:38 Lab Results: I have reviewed the past 24 hour labs Labs: Laboratory Results - last 24 hr 10/01/16 10/01/16 10/01/16 11:50 17:05 17:39 POC Glucose 177 H 200 H Troponin I < 0.015 10/01/16 10/01/16 10/01/16 20:46 20:49 23:47 POC Glucose 188 H Troponin I < 0.015 < 0.015 10/02/16 10/02/16 07:30 10:40 POC Glucose 267 H 181 H Troponin I - Diagnostic Findings Procedure: Chest x-ray: report reviewed by me, image reviewed by me (09/30/16: minimal atelectasis bilateral lung bases. no acute cardiopulmonary process.) - EKG EKG results: interpreted by me, no acute changes EKG shows: sinus rhythm IGautam Michael, MD, personally performed the services described in this documentation, ascribed by Adina Tang RN in my presence, and it is both accurate and complete 621 .
[2016-10-02] MEDS: LEVOFLOXACIN INJ 750 MG in PREMIX 1 EACH IV SCH (20:24)
[2016-10-03] MEDS: SODIUM CHLORIDE 0.9% 1,000 ML IV SCH ×3 (00:20→13:14)
[2016-10-03] MEDS: methylPREDNISolone SOD SUC 40 MG/1 ML VIAL IV SCH ×3 (03:04→15:29)
[2016-10-03] MEDS: ALBUTEROL/IPRATROPIUM 3 ML NEB RESP TX SCH (07:32)
[2016-10-03] MEDS: ENOXAPARIN 40 MG/0.4 ML SYRINGE SUBCUT SCH (08:37)
[2016-10-03] MEDS: metFORMIN 850 MG TABLET PO SCH (08:37)
[2016-10-03] MEDS: NICOTINE 21 MG/24 HR PATCH TRANSDERM SCH (08:37)
[2016-10-03] MEDS: INSULIN REGULAR 100 UNIT/ML SUBCUT SCH ×2 (08:37→11:24)
[2016-10-03] MEDS: PANTOPRAZOLE 40 MG TABLET PO SCH (08:37)
[2016-10-03] MEDS: BUDESONIDE/FORMOTEROL 160-4.5 INHALER 6 GM INH SCH (08:38)
--- NOTE | 2016-10-03 08:38 | Discharge Summary ---
<Anurag Pack - Last Filed: 10/03/16 08:12> Hospital Course - Hospital Course Hospital Course: This patient is a 51 year-old male who was admitted to the ED on 10/01/2016 with several significant medical problems including syncopal episode and COPD exacerbation. Head CT and Brain MRI on admission showed no acute intracranial pathology. Carotid doppler showed no hemodynamically significant stenosis. Echocardiogram showed an Ef of 55-60% with no significant valvular abnormalities. Cardiology was consulted and found no cardiac etiology for his syncope. Sleep medicine was then consulted to address the patient's untreated sleep apnea and scheduled an HST for 10/02/2016. The patient has reached maximum benefit from hospitalization and is stable for discharge at this time. He should follow up with Dr. Jackson and sleep medicine to further evaluate his sleep apnea. He has been given [place] for his headaches which is preferred over the BCs given his extensive medical complications. He has been given appropriate follow up instructions as are outlined in the discharge orders. - Time spent with patient Time with patient DS: Greater than 30 minutes Specialty Discharge - Follow Up or Referrals Follow up with: Allie Jackson MD [Physician] - (follow up ) Discharge Plan - Discharge Data Disposition: Disch To Home/Self Care - Discharge Medications New Budesonide/Formoterol 160-4.5 [Symbicort 160-4.5] 2 puff INH BID #1 inhaler Levofloxacin Tab [Levaquin Tab] 500 mg PO DAILY #7 tablet Metformin HCl [Glucophage] 1,000 mg PO BID #60 tablet Nicotine 21 mg/24 Hr Patch [Nicoderm CQ 21 mg/24 hr Patch] 1 patch TRANSDERM DAILY #42 patch predniSONE TAB [PredniSONE] 20 mg PO DAILY #30 tablet HYDROcodone/ACETAMIN 10-325 [[place] 10-325] 1 tablet PO Q4H PRN #30 tablet PRN Reason: Pain Moderate (4-7) Continue Ipratropium/Albuterol Sulfate [Combivent Respimat Inhal [place]] 4 gm IH Q12HR #1 aer.w.adap Meloxicam [Mobic] 7.5 mg PO DAILY PRN PRN Reason: Pain Albuterol/Ipratropium Neb [Duoneb] 3 ml RESP TX TID #90 vial Discontinued metFORMIN [Glucophage] 850 mg PO BID W/MEALS #60 tablet Pantoprazole Tab [Protonix Tab] 40 mg PO DAILY #10 tablet Potassium Chloride [K-Tab ER] 20 meq PO DAILY Albuterol Neb [Proventil Neb] 1.25 mg RESP TX Q4H PRN PRN Reason: Shortness Of Breath/Wheezing - Follow Up or Referral Follow Up: Allie Jackson MD [Physician] - (follow up ) [facility] [Provider Group] - 2 Weeks - Forms/Instructions Instructions: Sleep Apnea Syndrome (GEN), Syncope (GEN) Exam - Constitutional Vitals: Period Temp Pulse Resp BP Sys/Randolph Pulse Ox Last 24 Hr 97.2 F-99.0 F 63-97 18-22 114-150/71-89 95-100 Discharge Results Labs on day of discharge: Labs from last 24 hours 10/03/16 10/02/16 10/02/16 07:10 20:10 17:16 POC Glucose 202 H 185 H 246 H 10/02/16 10:40 POC Glucose 181 H DS: Provider Date of admission: 10/01/16 01:58 Primary care physician: . No PCP Attending physician on admission: Marion Manuel MD Consults: 10/01/16 17:18 Consult to Case Mgmt/Social Srvs [CONS] Routine Reason for Case Mgmt/Social Srvs: Equipment Consult Comment: oxygen and cpap 10/01/16 17:19 Consult to Physician [CONS] Routine Comment: reoccuring syncope Consulting Provider: Narendra Devine When should Consulting Provider be notified: In am Person Notified: Danial Date Notified: 10/02/16 Time Notified: 08:47 10/01/16 17:21 Consult to Diabetes Center, Educator [CONS] Routine Reason for Facilities Mechanical Design Engineer: Diabetes Education 10/02/16 10:01 Consult to Sleep Center [CONS] Routine Reason for Sleep Center: Sleep Center Physician Consult Comment: desparately needs cpap Discharging clinician: Anurag BOB Expected date of discharge: 10/03/16 <Marion Manuel - Last Filed: 10/03/16 11:09> Hospital Course - Hospital Course Hospital Course: Patient seen and examined. Hospital course reviewed and edited. Cardiology has seen patient and feels his syncope episodes are due to vasovagal but Patient seems to come up with various complaints and is seeking disability. Follow up with [facility] and Dr. Jackson. - Time spent with patient Time with patient DS: Greater than 30 minutes (40 min) Diagnosis - Discharge Diagnosis (1) COPD exacerbation Status: Chronic (2) Uncontrolled diabetes mellitus Status: Acute (3) Syncope Status: Acute (4) Obstructive sleep apnea Status: Chronic Discharge Plan - Discharge Data Condition at Discharge: Stable Discharge Diet: diabetic diet Activity: resume usual activities as tolerated Hygiene: no restrictions Weight Bearing at Discharge: full weight bearing Contact your physician if you experience:: fever over 101 Exam - Constitutional General appearance: normal weight, no acute distress - Respiratory Respiratory exam: Present: clear to auscultation bilaterally, decreased breath sounds - Cardiovascular Cardiovascular exam: Present: regular rate and rhythm. Absent: systolic murmur - GI/Abdominal GI/Abdominal exam: Present: normal bowel sounds, soft. Absent: tenderness - Extremities Exam Extremities exam: Present: normal inspection, normal capillary refill - Neurological Exam Neurological exam: Present: alert, oriented X3 - Psychiatric Psychiatric exam: Present: normal affect, normal mood
[2016-10-03 11:04] VITALS: BP 137/80
--- NOTE | 2016-10-03 12:50 | Sleep Medicine Progress Note ---
Assessment and Plan (1) Obstructive sleep apnea Status: Chronic Assessment and plan: Patient does have mild obstructive sleep apnea and we will try to fit him for CPAP today and recommend pressure settings and therapy to a local DME company for arrangement of a pena deal CPAP machine for him. Current Visit: Yes (2) COPD exacerbation Status: Chronic Current Visit: Yes Sleep Medicine Subjective Interval history: Patient did have evidence of mild obstructive sleep apnea on HST. He had a diagnostic AHI of 7 with O2 desats to lows of 72%. Had the appearance on his evaluation of significant REM related sleep apnea. He is being discharged today and does not have insurance. We will try to get him down to the lab today and fit him for a mask and see how he tolerates pressure. Ideally, he would best be served with an auto titration device if formal titration cannot be done. He will need to check with DME companies and see if he can get a pena deal on an auto titration CPAP device. I have given him the names of some DME companies and [place] that he can contact regarding this and we can provide him with a prescription. Exam (Progress Note) - Constitutional Vitals: Period Temp Pulse Resp BP Sys/Randolph Pulse Ox Last 24 Hr 97.2 F-99.0 F 63-97 18-22 114-150/71-89 95-100 Exam: Chest with good air movement bilaterally without focal wheeze or rhonchi. Cardiac exam reveals a regular rhythm without murmur or gallop. Abdomen soft nontender extremities without increased edema. Results - Labs CBC & BMP: 10/01/16 06:38 10/01/16 06:38 Lab Results: I have reviewed the past 24 hour labs Specialty Discharge - Follow Up or Referrals Follow up with: [facility] [Provider Group] - 2 Weeks Allie Jackson MD [Physician] - (follow up )
== END 2016-10-03 15:39 | disposition home or self-care (01) | DRG 312 ==
LOC: EDUNIT# → EDBD → N.ED 22:58 → N.EDINP 10-01 01:58 → N.5E 10-01 02:45
PROVIDERS: ADMIT Internal Medicine; ATTEND Internal Medicine

== ENCOUNTER 2016-10-13 12:21 | Inpatient (IN) ==
[2016-10-13] MEDS ORDERED: SODIUM CHLORIDE 0.9% 1,000 ML IV STA (15:30)
[2016-10-13] MEDS ORDERED: VANCOMYCIN INJ 1,500 MG in SODIUM CHLORIDE 0.9% 500 ML IV STA (15:32)
--- NOTE | 2016-10-13 15:37 | Emergency Department Note ---
Arrival - Arrival Chief Complaint: Abscess Stated Complaint: Staph Infection/vomiting ED Nursing Triage Note: C/O BEING EVALUATED AT [facility] ED ON SAT. AND HAD I & D done at that time., states was told he had staph., states he went back to [facility] on thrusday., states now having the same thing on the left arm., patient has bandages on both arm., states was placed on bactrim DS Mode of Arrival: Ambulatory Limitations: No Limitations Source: Patient Time Seen by Provider: 10/13/16 15:14 - History of Present Illness HPI Narrative: The patient complains of abscesses to his right and left forearms for the past 3 days. He also complains of nausea and vomiting and has been unable to keep his medications down. He was seen at [facility] 3 days ago and had incision and drainage of 2 abscesses on his right forearm. Since then a third abscess on his right forearm started to drain. He also has 3 small excoriated areas on his left forearm that he said were also abscesses. He was put on Bactrim DS which she has been taking for the past 2 days but it is unclear how much he is keeping down due to the vomiting. He does not know if he has had fever. Allergies/Adverse Reactions: Allergies Allergy/AdvReac Type Severity Reaction Status Date / Time Penicillins Allergy RASH Verified 10/13/16 12:42 Home Medications: Home Medications Medication Instructions Recorded Confirmed Type Ipratropium/Albuterol Sulfate 4 gm IH Q12HR #1 aer.w.adap 10/24/14 10/01/16 Rx [Combivent Respimat Inhal [place]] Meloxicam [Mobic] 7.5 mg PO DAILY PRN 10/01/16 10/01/16 History Albuterol/Ipratropium Neb [Duoneb] 3 ml RESP TX TID #90 vial 10/03/16 Rx Budesonide/Formoterol 160-4.5 2 puff INH BID #1 inhaler 10/03/16 Rx [Symbicort 160-4.5] Citalopram [CeleXA] 20 mg PO DAILY #30 tablet 10/03/16 Rx HYDROcodone/ACETAMIN 10-325 [[place] 1 tablet PO Q4H PRN #30 tablet 10/03/16 Rx 10-325] Levofloxacin Tab [Levaquin Tab] 500 mg PO DAILY #7 tablet 10/03/16 Rx Metformin HCl [Glucophage] 1,000 mg PO BID #60 tablet 10/03/16 Rx Nicotine 21 mg/24 Hr Patch 1 patch TRANSDERM DAILY #42 patch 10/03/16 Rx [Nicoderm CQ 21 mg/24 hr Patch] predniSONE TAB [PredniSONE] 20 mg PO DAILY #30 tablet 10/03/16 Rx Review of System - Review of System 12 point system: reviewed and no additional remarkable complaints except as stated - Review of System Constitutional: Present: chills, fever (Questionable, subjective) Respiratory: Absent: cough, respiratory distress Cardiovascular: Absent: chest pain Gastrointestinal: Present: nausea, vomiting. Absent: abdominal pain Musculoskeletal: Present: arm pain Medical,Surgical,& Family Hx - Medical History Cardio: History of: Hypertension, MS (questionable), PVD No history of: Cardiac Dysrhythmia, CHF, CAD, Valvular Heart Disease Psychological: No history of: Anxiety Disorders, Depression Neurology: No history of: Dementia, Seizures, TIA Endocrine: History of: Diabetes Mellitus (IDDM), Diabetes Mellitus (NIDDM), Dyslipidemia Rheumatology: History of;: Fibromyalgia Respiratory: History of: Bronchitis, COPD, Obstructive Sleep Apnea No history of: Pulmonary Hypertension Renal: No history of: Renal Failure Genitourinary: History of: Prostate Problems Gastrointestinal: History of: GERD No history of: Gastrointestinal Bleed, Hepatitis Musculoskeletal: History of: Back/Neck Problems, Musculoskeletal Problems Hematology: No history of: Anemia, Blood Transfusion Reaction Other: No history of: Cancer - Surgical History Cardiac Surgeries: Sugical HX of: Cardiac Catheterization (questionable) Thoracic Surgeries: Patient denies;: Organ Transplant, Lobectomy Neurologic Surgeries: Patient denies: Neurologic Surgery HEENT Surgeries: Patient denies: Tonsilectomy & Adenoidectomy - Family History Family History: Reports;: Family Cancer, Family Diabetes, Family Heart Disease ( Brotherdied at age 49 sudden, massive heart attack), Family Hypertension - Social History Smoking Status: Smoker, status unknown Frequency of Alcohol Use: None Type of Drug Use: None Exam Physical Examination: GENERAL: Alert. No acute distress. HEENT: Normocephalic and atraumatic. There is no nasal drainage. No pharyngeal erythema or exudate. NECK: Normal inspection. Supple. No lymphadenopathy or meningismus. LUNGS: No respiratory distress. Clear to auscultation bilaterally, no wheezes, rales or rhonchi. HEART: Regular rate and rhythm. No murmurs heard. ABDOMEN: Soft, nontender and nondistended with normoactive bowel sounds. BACK: Normal inspection. SKIN: There are 3 abscesses of the right forearm, the worst of which is the most distal. There is some swelling and induration there with minimal drainage. The other 2 are draining spontaneously. There are small, weeping 3 excoriated areas of the left forearm. Minimal erythema. No fluctuance, drainage or tenderness noted. There is also a small crusted lesion to the right postauricular scalp. EXTREMITIES: Normal range of motion. Minimal edema of the right forearm and hand. Distal extremities are neurovascularly intact. NEUROLOGICAL/PSYCHIATRIC: Alert and oriented -3 with normal mood and affect. Cranial nerves normal. No motor or sensory deficit. Vital Signs: Vital Signs Temperature 98.0 F 10/13/16 14:40 Pulse Rate 73 10/13/16 14:40 Respiratory Rate 18 10/13/16 14:40 Blood Pressure 130/68 10/13/16 14:40 O2 Sat by Pulse Oximetry 100 10/13/16 14:40 Course - Reevaluation(s) Reevaluation #1: Because of the patient's current problems with nausea and vomiting, presumably due to pancreatitis, he is unable to keep down p.o. meds. On second interview the patient admits to having had problems with pancreatitis in the past. Given this and the continued worsening of his abscesses i think he will need to be admitted for IV antibiotics. I have discussed the patient with the hospitalist service who will see him and admit. Time: 17:48 Procedures - Abscess I/D Consent obtained: verbal consent Site: upper extremity Side (if applicable): right Local Anesthetic: lidocaine 1% Amount of Anesthesia Used (mL): 2 Technique: incised with #11 blade Amount of fluid: 2 (Purulent) Irrigation: No Packing used?: iodoform Complications: pain Results - Labs CBC & BMP: 10/13/16 16:25 10/13/16 16:25 Lab Results: I have reviewed the patients labs Labs: Laboratory Tests 10/13/16 16:25 Amylase 129 H Lipase 488.0 H Disposition Clinical Impression: Abscess of skin or subcutaneous tissue, Pancreatitis Case discussed with: patient, patient's family Condition: Stable Time of Disposition: 17:48
[2016-10-13 16:31] LABS: Basophils % 0.3 % (0.0-0.8); Eosinophils # 0.1 10*3/uL (0.0-0.87); Eosinophils % 1.7 % (0.00-10.9); Hematocrit 38.3 VOL% (42.0-52.0); Hemoglobin 12.6 GM/DL (14.0-18.0); Immature Granulocytes % 0.1 %; Immature Granulocytes Absolute 0.01 #; Lymphocytes # 1.4 10*3/uL (1.4-4.0); Lymphocytes % 19.5 % (21.2-54.2); Mean Corpuscular HGB Conc 32.9 GM/DL (32-36); Mean Corpuscular Hemoglobin 33 PG (27-34); Mean Corpuscular Volume 99.7 FL (87-102); Mean Platelet Volume 10.2 FL (9.6-12.0); Monocytes # 0.3 10*3/uL (0.11-0.8); Monocytes % 4.2 % (1.7-12.7); Neutrophils # 5.2 10*3/uL (1.4-7.4); Neutrophils % 74.2 % (38.7-73.9); Platelet Count 163 T/CUMM (130-400); Red Blood Count 3.84 MC/CUMM (3.8-5.5); Red Cell Distribution Width 13.3 % (9.3-17.3); White Blood Count 7.1 T/CUMM (4-12)
[2016-10-13 16:52] LABS: Alanine Aminotransferase 16 U/L (16-61); Albumin 3.5 G/DL (3.4-5.0); Alkaline Phosphatase 96 U/L (45-117); Amylase 129 U/L (25-115); Aspartate Amino Transferase 12 U/L (0-37); Bilirubin,Total < 0.39 MG/DL (0.2-1.0); Blood Urea Nitrogen 10 MG/DL (7-18); Calcium 8.6 MG/DL (8.5-10.1); Glucose 92 MG/DL (74-106); Osmolality,Calculated 277.4 MOS/KG (273-304); Potassium 3.6 MMOL/L (3.5-5.1); Sodium 140 MMOL/L (136-145); Total Protein 6.9 G/DL (6.4-8.3)
[2016-10-13] MEDS ORDERED: VANCOMYCIN 1,000 MG VIAL ONE (17:03)
[2016-10-13] MEDS ORDERED: LEVOFLOXACIN INJ 500 MG in PREMIX 1 EACH IV STA (18:43)
--- NOTE | 2016-10-13 19:19 | Hospitalist History & Physical ---
Assessment and Plan - Time spent with patient Time spent with patient: Greater than 30 minutes Time spent discussing smoking cessation with patient: 3 to 10 minutes (1) Cellulitis Status: Acute Assessment and plan: Start the patient on vancomycin and await culture results. Current Visit: Yes (2) Pancreatitis Status: Acute Assessment and plan: Keep the patient n.p.o. obtain right upper quadrant ultrasound and a lipid panel in the morning. Consult gastroenterology. Current Visit: Yes (3) COPD exacerbation Status: Chronic Assessment and plan: We will place the patient on steroids breathing treatments and Levaquin. Current Visit: No (4) Tobacco abuse counseling Status: Acute Assessment and plan: Patient was counseled on tobacco abuse. Will continue his nicotine patch. Current Visit: Yes (5) Obstructive sleep apnea Status: Chronic Assessment and plan: We will arrange for CPAP at night. Current Visit: No History of Present Illness Chief complaint: Nausea vomiting and staph infection of both forearms History of present illness: Mr. Rodríguez is a 51 year old male with a medical history of COPD who presents with nausea vomiting and staph infection of both forearms. He states that he developed nausea and vomiting Saturday night. This is associated with diarrhea which he no longer has. Nausea vomiting persists currently. Denies any abdominal pain. He states around this time he develops wounds on both arms that required a visit to the ER the next day on Saturday for evaluation. Wound in his right forearm was found to be an abscess and was incised and drained and packed. He was prescribed Bactrim DS which she was unable to fill until next day. He made a second visit to the ER on however was discharged. He was told the infection is Staphylococcus. Patient states he has taken Bactrim DS however his wounds appear to be progressing. He also has continued nausea vomiting and a low-grade fever of 99.7. Denies any chest pain or shortness of breath. He is an active smoker. Home Medications Medication Instructions Recorded Confirmed Type Ipratropium/Albuterol Sulfate 4 gm IH Q12HR #1 aer.w.adap 10/24/14 10/01/16 Rx [Combivent Respimat Inhal [place]] Meloxicam [Mobic] 7.5 mg PO DAILY PRN 10/01/16 10/01/16 History Albuterol/Ipratropium Neb [Duoneb] 3 ml RESP TX TID #90 vial 10/03/16 Rx Budesonide/Formoterol 160-4.5 2 puff INH BID #1 inhaler 10/03/16 Rx [Symbicort 160-4.5] Citalopram [CeleXA] 20 mg PO DAILY #30 tablet 10/03/16 Rx HYDROcodone/ACETAMIN 10-325 [[place] 1 tablet PO Q4H PRN #30 tablet 10/03/16 Rx 10-325] Levofloxacin Tab [Levaquin Tab] 500 mg PO DAILY #7 tablet 10/03/16 Rx Metformin HCl [Glucophage] 1,000 mg PO BID #60 tablet 10/03/16 Rx Nicotine 21 mg/24 Hr Patch 1 patch TRANSDERM DAILY #42 patch 10/03/16 Rx [Nicoderm CQ 21 mg/24 hr Patch] predniSONE TAB [PredniSONE] 20 mg PO DAILY #30 tablet 10/03/16 Rx Allergies Allergy/AdvReac Type Severity Reaction Status Date / Time Penicillins Allergy RASH Verified 10/13/16 12:42 Medical,Surgical,& Family Hx - Medical History Cardio: History of: Hypertension, [place] (questionable), PVD No history of: Cardiac Dysrhythmia, CHF, CAD, Valvular Heart Disease Psychological: No history of: Anxiety Disorders, Depression Neurology: No history of: Dementia, Seizures, TIA Endocrine: History of: Diabetes Mellitus (IDDM), Diabetes Mellitus (NIDDM), Dyslipidemia Rheumatology: History of;: Fibromyalgia Respiratory: History of: Bronchitis, COPD, Obstructive Sleep Apnea No history of: Pulmonary Hypertension Renal: No history of: Renal Failure Genitourinary: History of: Prostate Problems Gastrointestinal: History of: GERD No history of: Gastrointestinal Bleed, Hepatitis Musculoskeletal: History of: Back/Neck Problems, Musculoskeletal Problems Hematology: No history of: Anemia, Blood Transfusion Reaction Other: No history of: Cancer - Surgical History Cardiac Surgeries: Sugical HX of: Cardiac Catheterization (questionable) Thoracic Surgeries: Patient denies;: Organ Transplant, Lobectomy Neurologic Surgeries: Patient denies: Neurologic Surgery HEENT Surgeries: Patient denies: Tonsilectomy & Adenoidectomy - Family History Family History: Reports;: Family Cancer, Family Diabetes, Family Heart Disease ( Brotherdied at age 49 sudden, massive heart attack), Family Hypertension - Social History Smoking Status: Smoker, status unknown Frequency of Alcohol Use: None Type of Drug Use: None 12 point system: reviewed and no additional remarkable complaints except as stated Exam - Constitutional General appearance: no acute distress - Head Head exam: Present: normocephalic, atraumatic - Eye Eye exam: Present: EOMI Pupils: Present: DONNA - ENT ENT exam: Present: normal exam - Neck Neck exam: Present: normal inspection - Respiratory Respiratory exam: Present: wheezes. Absent: rhonchi - Cardiovascular Cardiovascular exam: Present: regular rate and rhythm. Absent: gallop, rubs, systolic murmur - GI/Abdominal GI/Abdominal exam: Present: normal bowel sounds, soft. Absent: distended, firm , guarding, tenderness, rebound - Extremities Exam Extremities exam: Present: normal inspection, other (Right forearm reveals multiple areas of folliculitis and one large area of previous incision and drainage. They appear to be infected with mild cellulitis. Left forearm reveals ulcerations on his skin in multiple areas.). Absent: calf tenderness, edema Results - Labs CBC & BMP: 10/13/16 16:25 10/13/16 16:25 Lab Results: I have reviewed the past 24 hour labs
--- NOTE | 2016-10-13 20:21 | Ultrasound Report ---
History: Pancreatitis Date: 10/13/2016 Study: Right upper quadrant ultrasound Comparison exam: No previous similar Real-time ultrasound images were captured and archived. Numerous highly echogenic foci with posterior acoustic shadowing compatible with gallstones noted in the lumen of the gallbladder. There is no gallbladder wall thickening or abnormal pericholecystic fluid. There is no sonographic Pleitez sign. The common bile duct measures 4.8 mm diameter. There is no intrahepatic biliary dilatation. There is no focal hepatic mass. There is hepatopedal flow in the portal vein. The pancreas appears normal sonographically, though that does not exclude a diagnosis of pancreatitis. The right kidney measures 11.7 cm length and is normal. Impression: Cholelithiasis PROCEDURE INTERPRETED AT [facility] DEPARTMENT OF RADIOLOGY Final Report Signed by: Dr. Kim Guy
[2016-10-13] MEDS: ALBUTEROL/IPRATROPIUM 3 ML NEB RESP TX SCH (20:48)
[2016-10-13] MEDS: SODIUM CHLORIDE 0.9% 1,000 ML IV SCH (20:50)
[2016-10-13] MEDS: methylPREDNISolone SOD SUC 40 MG/1 ML VIAL IV SCH (20:50)
[2016-10-13] MEDS ORDERED: DEXTROSE 50% 25 GM/50 ML VIAL IV ONE (21:22)
[2016-10-13] MEDS ORDERED: DEXTROSE 50% 25 GM/50 ML VIAL IV PRN (21:26)
[2016-10-13] MEDS: BUDESONIDE/FORMOTEROL 160-4.5 INHALER 6 GM INH SCH (22:26)
[2016-10-14] MEDS: ALBUTEROL/IPRATROPIUM 3 ML NEB RESP TX SCH ×6 (00:13→19:57)
[2016-10-14] MEDS: methylPREDNISolone SOD SUC 40 MG/1 ML VIAL IV SCH ×4 (03:10→21:03)
[2016-10-14] MEDS: SODIUM CHLORIDE 0.9% 1,000 ML IV SCH ×5 (03:21→21:02)
[2016-10-14 04:45] LABS: Basophils % 0.2 % (0.0-0.8); Eosinophils % 0.2 % (0.00-10.9); Hematocrit 40.7 VOL% (42.0-52.0); Hemoglobin 13.4 GM/DL (14.0-18.0); Immature Granulocytes % 0.4 %; Immature Granulocytes Absolute 0.02 #; Lymphocytes # 0.4 10*3/uL (1.4-4.0); Lymphocytes % 7.9 % (21.2-54.2); Mean Corpuscular HGB Conc 32.9 GM/DL (32-36); Mean Corpuscular Hemoglobin 33 PG (27-34); Mean Corpuscular Volume 99.8 FL (87-102); Mean Platelet Volume 10.3 FL (9.6-12.0); Monocytes # 0.1 10*3/uL (0.11-0.8); Monocytes % 1.3 % (1.7-12.7); Platelet Count 170 T/CUMM (130-400); Red Blood Count 4.08 MC/CUMM (3.8-5.5); Red Cell Distribution Width 13.2 % (9.3-17.3); White Blood Count 5.6 T/CUMM (4-12)
[2016-10-14 05:25] LABS: Calcium 8.5 MG/DL (8.5-10.1); Osmolality,Calculated 283.3 MOS/KG (273-304); Potassium 4.3 MMOL/L (3.5-5.1)
[2016-10-14 05:35] LABS: Risk Ratio 3.26; VLDL CHOLESTEROL 10.2 MG/DL
--- NOTE | 2016-10-14 08:27 | Gastrointestinal Consult Note ---
Assessment and Plan - Time spent with patient Time spent with patient: Greater than 30 minutes (1) Elevated lipase Status: Acute Current Visit: Yes (2) Other specified counseling Status: Acute Current Visit: Yes History of Present Illness History of present illness: Mr. Rodríguez is a 51 year old male Home Medications Medication Instructions Recorded Confirmed Type Ipratropium/Albuterol Sulfate 4 gm IH Q12HR #1 aer.w.adap 10/24/14 10/13/16 Rx [Combivent Respimat Inhal [place]] Meloxicam [Mobic] 7.5 mg PO DAILY PRN 10/01/16 10/13/16 History Budesonide/Formoterol 160-4.5 2 puff INH BID #1 inhaler 10/03/16 10/13/16 Rx [Symbicort 160-4.5] Citalopram [CeleXA] 20 mg PO DAILY #30 tablet 10/03/16 10/13/16 Rx HYDROcodone/ACETAMIN 10-325 [[place] 1 tablet PO Q4H PRN #30 tablet 10/03/1610/13 Rx 10-325] Metformin HCl [Glucophage] 1,000 mg PO BID #60 tablet 10/03/16 10/13/16 Rx Nicotine 21 mg/24 Hr Patch 1 patch TRANSDERM DAILY #42 patch 10/03/16 10/13/16 Rx [Nicoderm CQ 21 mg/24 hr Patch] predniSONE TAB [PredniSONE] 20 mg PO DAILY #30 tablet 10/03/16 10/13/16 Rx Albuterol/Ipratropium Neb [Duoneb] 3 ml RESP TX BID PRN 10/13/16 10/13/16 History Allergies Allergy/AdvReac Type Severity Reaction Status Date / Time Penicillins Allergy RASH Verified 10/13/16 12:42 Medical,Surgical,& Family Hx - Medical History Cardio: History of: Hypertension, PA (questionable) No history of: Cardiac Dysrhythmia, CHF, CAD, PVD, Valvular Heart Disease Psychological: No history of: Anxiety Disorders, Depression Neurology: History of: Migraine No history of: Dementia, Seizures, TIA HEENT: History of: Eye Problem Endocrine: History of: Diabetes Mellitus (IDDM), Diabetes Mellitus (NIDDM), Dyslipidemia Rheumatology: History of;: Fibromyalgia Respiratory: History of: Bronchitis, COPD, Obstructive Sleep Apnea No history of: Pulmonary Hypertension Renal: No history of: Renal Failure Genitourinary: History of: Kidney Stones, Recurring Urinary Tract Infections No history of: Prostate Problems Gastrointestinal: History of: GERD, Hemorrhoids, Pancreatitis (15 years ago) No history of: Gastrointestinal Bleed, Hepatitis Musculoskeletal: History of: Back/Neck Problems, Musculoskeletal Problems Hematology: No history of: Anemia, Blood Transfusion Reaction Other: No history of: Cancer - Surgical History Cardiac Surgeries: Sugical HX of: Cardiac Catheterization (questionable) Thoracic Surgeries: Surgical HX of;: Lithotripsy Patient denies;: Organ Transplant, Lobectomy Neurologic Surgeries: Patient denies: Neurologic Surgery HEENT Surgeries: Patient denies: Tonsilectomy & Adenoidectomy Abdominal Surgeries: Patient denies: Appendectomy, Cholecystectomy - Family History Family History: Reports;: Family Cancer, Family Diabetes, Family Heart Disease ( Brotherdied at age 49 sudden, massive heart attack), Family Hypertension - Social History Smoking Status: Smoker, status unknown Frequency of Alcohol Use: None Type of Drug Use: None Exam - Constitutional Vitals: Period Temp Pulse Resp BP Sys/Randolph Pulse Ox Last 24 Hr 96.6 F-98.8 F 57-95 16-20 137-156/66-87 96-99 Results - Labs CBC & BMP: 10/14/16 03:28 10/14/16 03:28 Quality Measures - Stroke Symptom Onset Unknown: No Note Addendum: PLEASE NOTE -- automatic citation of patient information is unavoidable in this electronic note. I have made a reasonable effort to review the information cited , but it is not a part of my evaluation, impression, or recommendation unless specifically discussed in the dictated text that follows. As well, voice recognition software was used in the creation of this clinical note. Reasonable effort was made to identify and correct gross errors. Despite proofreading, errors in sales planning coordinator may be present, including nonsense verbiage at times. If you encounter such an error, please contact me at for discussion and correction. -- [place] Chief complaint: nausea and vomiting History of present illness: This is a new patient, a 51-year-old male seen by consultation for evaluation of suspected pancreatitis. The patient is admitted to the hospitalist service under the care of Dr. Banda with a primary diagnosis of cellulitis involving the upper extremities. The patient was admitted through the emergency department last evening with complaint of nausea and vomiting for several days. He also reported diarrhea for a day or two which resolved. He did not have abdominal pain during this time but did have wounds on both his forearms which required drainage and antibiotic (given at an outside institution earlier this week). As part of his evaluation, serum lipase was measured in the emergency department and found to be in the 400s. We are asked to see the patient for evaluation of possible pancreatitis. The patient reports no abdominal pain per se during this time. The nausea and vomiting was more associated with the acute infection, he believes and has entirely resolved. The diarrhea as well, has entirely resolved. At present, the patient is hungry and would like to eat. He has no abdominal pain. He would like more instruction regarding how to take care of the ones on his arm. Patient denies fever, chills, night sweats, rigors, headache, dizziness, neck pain, visual changes, redness of the eyes, dysphagia, odynophagia, difficulty chewing, chest pain, shortness of breath, abdominal pain, weight loss, regurgitation, hematemesis, hematochezia, melena, proctalgia, constipation, dysuria,, temperature regulation issues, flushing, easy bleeding/bruising, mental status change, numbness/weakness in the extremities, yellowing of the eyes/skin, family history of gastrointestinal cancer and colon polyps, and other complaints in general. Review of systems: 12 point review of systems was negative except as documented above. Outpatient medications: Combivent, Mobic, Duoneb, Symbicort, Celexa, [place], levofloxacin, metformin, nicotine patch, prednisone Inpatient medications: Duoneb, Symbicort, levofloxacin, Solu-Medrol, Nicoderm, normal saline infusion, vancomycin Past Medical History: hypertension, peripheral vascular disease, possible myocardial infarction, diabetes, dyslipidemia, fibromyalgia, prostate problems, gastroesophageal reflux disease, back and neck pain, musculoskeletal problems generally Social history: positive tobacco. Negative alcohol Family history: no gastrointestinal cancers Physical examination: Vital Signs: Current vital signs reviewed and documented above. General Appearance: well-appearing. Not acutely ill. Head: Normocephalic. Neck: Palpation of the neck revealed no abnormalities. Eyes: No scleral icterus. No scleral injection. No conjunctival pallor. Oral Cavity: Odor of breath was normal. No drooling was observed. Lips showed no abnormalities. Floor of the mouth showed no abnormalities. Pharynx: Oropharynx was normal. Lungs: Respiration rhythm and depth was normal. Cardiovascular: Heart rate and rhythm were normal. No murmurs were appreciated. Abdomen: abdomen was not distended. Abdominal palpation revealed no tenderness and no hepatosplenomegaly. Ascites was not discovered. Abdominal auscultation revealed positive bowel sounds. Musculoskeletal System: Musculoskeletal system was grossly normal. Neurological: level of consciousness was normal. Speech was normal. Skin: General appearance was normal. Color and pigmentation were normal. Skin lesions involving the right upper extremity covered by surgical dressing. Laboratory: white blood count 5.6, hemoglobin 13.4, hematocrit 40.7, platelets 170, ALT 16, AST 12, bilirubin 0.4, alkaline phosphatase 96, lipase 488 --> 374 , triglycerides 51, calcium 8.5 Radiology: right upper quadrant ultrasound, October 13, 2016 -- cholelithiasis without evidence of cholecystitis or choledocholithiasis Impressions: 1. Elevated serum lipase -- outside the minimal elevation of lipase, the patient does not have clinical features of acute pancreatitis. As a solitary diagnostic criteria, I would expect to see serum lipase of greater than three times the upper limit of normal in order to make the diagnosis. Absent these other criteria, it's more likely this mild elevation is associated with whatever is causing his nausea, vomiting, and diarrhea, perhaps transient infection. In fact, just the nausea and vomiting will sometimes lead to elevations in both serum amylase and lipase. As the patient is expressing a robust appetite, I would start with clear liquids and advance as tolerated. I would also continue with volume resuscitation at this point. I also recommend minimizing medications to whatever extent possible. Otherwise, there is not indication for an extensive etiology search regarding pancreatitis. 2. Other specified counseling -- The patient was seen for greater than 30 minutes. The patient was counseled for greater than 50% of this time regarding differential diagnosis, likely diagnosis, diagnostic and therapeutic alternatives, risks/benefits/alternatives of medications and procedures, and plan of care generally. The patient expressed understanding and wishes to proceed. Recommendations: -- continue volume resuscitation -- minimize medications to whatever extent possible -- clear liquid diet, advanced as tolerated -- thank you for this consultation. Dr. Mackey will assume G.I. care for this patient tomorrow.
[2016-10-14] MEDS: VANCOMYCIN INJ 1,250 MG in SODIUM CHLORIDE 0.9% 250 ML IV SCH ×2 (08:33→21:02)
[2016-10-14] MEDS: BUDESONIDE/FORMOTEROL 160-4.5 INHALER 6 GM INH SCH ×2 (08:33→21:03)
[2016-10-14] MEDS: NICOTINE 21 MG/24 HR PATCH TRANSDERM SCH (08:33)
[2016-10-14] MEDS: LEVOFLOXACIN INJ 750 MG in PREMIX 1 EACH IV SCH (09:41)
--- NOTE | 2016-10-14 12:13 | Hospitalist Progress Note ---
Assessment and Plan - Time spent with patient Time spent with patient: Greater than 30 minutes (1) Cellulitis Status: Acute Assessment and plan: Start the patient on vancomycin and await culture results. Current Visit: Yes (2) Pancreatitis Status: Acute Assessment and plan: Gastroenterology is consulted appreciate [facility] recognitions. We will start the patient on clear diet. Current Visit: Yes (3) COPD exacerbation Status: Chronic Assessment and plan: We will place the patient on steroids breathing treatments and Levaquin. Current Visit: No (4) Tobacco abuse counseling Status: Acute Assessment and plan: Patient was counseled on tobacco abuse. Will continue his nicotine patch. Current Visit: Yes (5) Obstructive sleep apnea Status: Chronic Assessment and plan: We will arrange for CPAP at night. Current Visit: No Hospitalist: Subjective Interval history: No complaints. Patient is improving overall Exam - Constitutional Vitals: Period Temp Pulse Resp BP Sys/Randolph Pulse Ox Last 24 Hr 96.6 F-98.8 F 18-95 16-20 130-156/66-87 94-99 General appearance: normal weight, no acute distress - Head Head exam: Present: normocephalic, atraumatic - Eye Eye exam: Present: EOMI Pupils: Present: DONNA - ENT ENT exam: Present: normal exam - Neck Neck exam: Present: normal inspection - Respiratory Respiratory exam: Present: wheezes. Absent: rhonchi - Cardiovascular Cardiovascular exam: Present: regular rate and rhythm. Absent: bradycardia, gallop, irregular rhythm, rubs, systolic murmur - GI/Abdominal GI/Abdominal exam: Present: normal bowel sounds, soft. Absent: distended, firm , guarding, tenderness, rebound - Extremities Exam Extremities exam: Present: normal inspection. Absent: calf tenderness, edema Results - Labs CBC & BMP: 10/14/16 03:28 10/14/16 03:28 Lab Results: I have reviewed the past 24 hour labs Quality Measures - Stroke Symptom Onset Unknown: No
[2016-10-15] MEDS: ONDANSETRON 4 MG/2 ML VIAL IV PRN ×2 (00:16→22:30)
[2016-10-15] MEDS: methylPREDNISolone SOD SUC 40 MG/1 ML VIAL IV SCH ×4 (02:21→21:16)
[2016-10-15] MEDS: ALBUTEROL/IPRATROPIUM 3 ML NEB RESP TX SCH ×6 (03:00→19:57)
[2016-10-15] MEDS: VANCOMYCIN INJ 1,250 MG in SODIUM CHLORIDE 0.9% 250 ML IV SCH ×3 (04:58→21:17)
[2016-10-15] MEDS: SODIUM CHLORIDE 0.9% 1,000 ML IV SCH ×4 (06:59→21:18)
[2016-10-15] MEDS: NICOTINE 21 MG/24 HR PATCH TRANSDERM SCH (09:26)
[2016-10-15] MEDS: BUDESONIDE/FORMOTEROL 160-4.5 INHALER 6 GM INH SCH ×2 (09:30→21:17)
[2016-10-15] MEDS: LEVOFLOXACIN INJ 750 MG in PREMIX 1 EACH IV SCH (09:30)
--- NOTE | 2016-10-15 12:00 | Hospitalist Progress Note ---
Assessment and Plan - Time spent with patient Time spent with patient: Greater than 30 minutes (1) Cellulitis Status: Acute Assessment and plan: Start the patient on vancomycin and await culture results. Current Visit: Yes (2) Pancreatitis Status: Acute Assessment and plan: Gastroenterology is consulted appreciate [facility] recognitions. We will start the patient on clear diet. Current Visit: Yes (3) COPD exacerbation Status: Chronic Assessment and plan: We will place the patient on steroids breathing treatments and Levaquin. Current Visit: No (4) Tobacco abuse counseling Status: Acute Assessment and plan: Patient was counseled on tobacco abuse. Will continue his nicotine patch. Current Visit: Yes (5) Obstructive sleep apnea Status: Chronic Assessment and plan: We will arrange for CPAP at night. Current Visit: No Hospitalist: Subjective Interval history: No overnight events. He complains of some nausea and epigastric pain. Exam - Constitutional Vitals: Period Temp Pulse Resp BP Sys/Randolph Pulse Ox Last 24 Hr 97.6 F-98.5 F 60-93 16-20 129-153/65-96 96-100 General appearance: no acute distress - Head Head exam: Present: normocephalic, atraumatic - Eye Eye exam: Present: EOMI Pupils: Present: DONNA - ENT ENT exam: Present: normal exam - Neck Neck exam: Present: normal inspection - Respiratory Respiratory exam: Present: clear to auscultation bilaterally. Absent: rhonchi, wheezes - Cardiovascular Cardiovascular exam: Present: regular rate and rhythm. Absent: gallop, rubs, systolic murmur - GI/Abdominal GI/Abdominal exam: Present: normal bowel sounds, soft. Absent: distended, firm , guarding, tenderness, rebound - Extremities Exam Extremities exam: Present: normal inspection, other (Arm wounds appear to be improving.). Absent: calf tenderness, edema Results - Labs CBC & BMP: 10/14/16 03:28 10/14/16 03:28 Lab Results: I have reviewed the past 24 hour labs Quality Measures - Stroke Symptom Onset Unknown: No
--- NOTE | 2016-10-15 12:30 | Gastrointestinal Progress Note ---
<Joanna Nyeher Rafael - Last Filed: 10/15/16 12:25> Assessment and Plan (1) Elevated lipase Status: Acute Assessment and plan: 10/15-1 week history of nausea and vomiting with findings of elevated lipase on admission. LFTs unremarkable. Findings of gallstones noted on ultrasound. No complaints of abdominal pain. Tolerating clear liquid diet. Advance to full liquid diet. Consider EGD as inpatient or possibly as outpatient with epigastric complaints and long-term heavy NSAID use. Plan an addendum to follow by Dr. Mackey. Current Visit: Yes Gastroenterology - PN: Subj Interval history: CC: Pancreatitis Patient is seen awake and alert sitting up in bed with at bedside. States that he is feeling much better today than he was on admission. He was admitted 2 days ago with complaints of nausea and vomiting. Patient was seen in [place] far cellulitis to his right arm recently. He states that approximately a week ago he had onset of nausea vomiting and diarrhea. He states that the diarrhea improved however the nausea and vomiting continued until he presented to our facility for evaluation. He does complain of some epigastric symptoms with some burning and discomfort after eating at times. He has a reported 20 year history of heavy BC powder use daily at 3-4 a day on average. He denies any melena or hematochezia. Denies any coffee-ground or hematemesis with his vomiting over the past week. Patient states that he was hospitalized in 2005 with what he was told was an episode of pancreatitis. He states that he was never told why he had the pancreatitis at that time. Denies a history of gallbladder problems. Denies a history of alcohol use. He smokes a half a pack daily. He does not and did not have significant complaints of abdominal pain on admission. He was found on ultrasound to have gallstones in the lumen of the gallbladder with no cholecystitis seen. Common bile duct was 4.8 mm without biliary dilation. No acute findings on the pancreas. LFTs were unremarkable on admission. Lipase was noted to be 488. This is trending downward at this time. Abdomen is soft, nontender. The only change in patient' s history is he was started on Celexa approximately 3 weeks ago. ROS: Denies shortness of breath or chest pain Exam (Progress Note) - Constitutional Vitals: Period Temp Pulse Resp BP Sys/Randolph Pulse Ox Last 24 Hr 98.0 F-98.5 F 60-93 16-20 129-149/65-92 96-100 General appearance: normal weight, no acute distress - Head Head exam: Present: normal inspection, normocephalic - Eye Eye exam: Present: other (Lids and conjunctive are unremarkable). Absent: scleral icterus - ENT ENT exam: Present: normal exam, normal oropharynx - Neck Neck exam: Present: normal inspection - Respiratory Respiratory exam: Present: clear to auscultation bilaterally. Absent: rales, rhonchi, wheezes - Cardiovascular Cardiovascular exam: Present: regular rate and rhythm. Absent: diastolic murmur , JVD, systolic murmur - GI/Abdominal GI/Abdominal exam: Present: normal bowel sounds, soft. Absent: ascites, distended, mass, organomegaly, tenderness - Extremities Exam Extremities exam: Present: normal inspection, full ROM - Back Exam Back exam: Present: normal inspection - Neurological Exam Neurological exam: Present: alert, oriented X3 - Psychiatric Psychiatric exam: Present: normal affect, normal mood - Skin Skin exam: Present: normal color, warm, dry Results - Labs CBC & BMP: 10/14/16 03:28 10/14/16 03:28 Lab Results: I have reviewed the past 24 hour labs - Diagnostic Findings Procedure: Ultrasound: report reviewed by nj <Adolfo Mackey - Last Filed: 10/15/16 20:20> Exam (Progress Note) - Constitutional Vitals: Period Temp Pulse Resp BP Sys/Randolph Pulse Ox Last 24 Hr 98.2 F-98.5 F 60-93 18-20 129-140/65-89 96-100 Results - Labs CBC & BMP: 10/14/16 03:28 10/14/16 03:28
[2016-10-15] MEDS: BACITRACIN OINT 0.9 GM PACK TOP SCH (12:54)
[2016-10-16] MEDS: ALBUTEROL/IPRATROPIUM 3 ML NEB RESP TX SCH ×7 (00:29→23:50)
[2016-10-16] MEDS: SODIUM CHLORIDE 0.9% 1,000 ML IV SCH ×5 (02:20→23:34)
[2016-10-16] MEDS: methylPREDNISolone SOD SUC 40 MG/1 ML VIAL IV SCH ×4 (04:02→20:43)
[2016-10-16 04:31] LABS: Hematocrit 35.8 VOL% (42.0-52.0); Hemoglobin 11.7 GM/DL (14.0-18.0); Immature Granulocytes % 0.6 %; Immature Granulocytes Absolute 0.04 #; Lymphocytes # 0.5 10*3/uL (1.4-4.0); Lymphocytes % 7.1 % (21.2-54.2); Mean Corpuscular HGB Conc 32.7 GM/DL (32-36); Mean Corpuscular Hemoglobin 33 PG (27-34); Mean Corpuscular Volume 99.4 FL (87-102); Mean Platelet Volume 10.6 FL (9.6-12.0); Monocytes # 0.1 10*3/uL (0.11-0.8); Monocytes % 1.5 % (1.7-12.7); Neutrophils # 6.1 10*3/uL (1.4-7.4); Neutrophils % 90.8 % (38.7-73.9); Platelet Count 177 T/CUMM (130-400); White Blood Count 6.8 T/CUMM (4-12)
[2016-10-16] MEDS: VANCOMYCIN INJ 1,250 MG in SODIUM CHLORIDE 0.9% 250 ML IV SCH ×3 (04:37→20:43)
[2016-10-16 04:58] LABS: Hypochromasia 1+; Lymphocytes 6 % (20-55); Platelet Estimate Normal; Segmented Neutrophils 93 % (50-85); Total Cells Counted 100
[2016-10-16 05:00] LABS: Calcium 8.3 MG/DL (8.5-10.1); Osmolality,Calculated 284.5 MOS/KG (273-304); Potassium 4.1 MMOL/L (3.5-5.1)
--- NOTE | 2016-10-16 08:16 | EKG Report ---
Stationary ECG Study [facility] Test Date: 10/16/2016 7:18:42 AM Pat Name: HECTOR SIDHU Department: Room: 218 Gender: M Local Delivery [employer]: MARS : [id number] Requested by: Sabine Salazar Order Number: [id number] Reading MD: DENNIS GARNER Intervals [place] Rate: 53 P: 18 UT: 144 QRS: 67 QRSD: 87 T: 61 QT: 400 QTc: 383 Interpretive Statements SINUS BRADYCARDIA Electronically Signed On 10-18-16 11:15:44 CDT by DENNIS GARNER [email or web address]
[2016-10-16] MEDS: NICOTINE 21 MG/24 HR PATCH TRANSDERM SCH (08:51)
[2016-10-16] MEDS: BUDESONIDE/FORMOTEROL 160-4.5 INHALER 6 GM INH SCH ×2 (08:52→20:50)
[2016-10-16] MEDS: BACITRACIN OINT 0.9 GM PACK TOP SCH (08:52)
[2016-10-16] MEDS: LEVOFLOXACIN INJ 750 MG in PREMIX 1 EACH IV SCH ×2 (08:52→09:59)
--- NOTE | 2016-10-16 10:49 | Hospitalist Progress Note ---
Assessment and Plan - Time spent with patient Time spent with patient: Greater than 30 minutes (1) Nausea Status: Acute Assessment and plan: EGD today. Current Visit: Yes (2) Cellulitis Status: Acute Assessment and plan: Continue Vanc. Will need Bactrim DS at D/C. I have asked surgery to evaluate for I&D. Current Visit: Yes (3) Pancreatitis Status: Acute Assessment and plan: Gastroenterology is consulted appreciate [place] jack[place]. Currently NPO for EGD. Current Visit: Yes (4) COPD exacerbation Status: Chronic Assessment and plan: We will place the patient on steroids breathing treatments and Levaquin. Still continues to wheeze. Current Visit: No (5) Tobacco abuse counseling Status: Acute Assessment and plan: Patient was counseled on tobacco abuse. Will continue his nicotine patch. Current Visit: Yes (6) Obstructive sleep apnea Status: Chronic Assessment and plan: We will arrange for CPAP at night. Current Visit: No Hospitalist: Subjective Interval history: No complaints, no overnight events. Exam - Constitutional Vitals: Period Temp Pulse Resp BP Sys/Randolph Pulse Ox Last 24 Hr 97.4 F-98.5 F 55-93 12-25 129-196/65-96 92-100 General appearance: normal weight, no acute distress - Head Head exam: Present: normocephalic, atraumatic - Eye Eye exam: Present: EOMI Pupils: Present: DONNA - ENT ENT exam: Present: normal exam - Neck Neck exam: Present: normal inspection - Respiratory Respiratory exam: Present: wheezes. Absent: rhonchi - Cardiovascular Cardiovascular exam: Present: regular rate and rhythm. Absent: gallop, rubs, systolic murmur - GI/Abdominal GI/Abdominal exam: Present: normal bowel sounds, soft. Absent: distended, firm , guarding, tenderness, rebound - Extremities Exam Extremities exam: Present: normal inspection, other (multiple areas of involvement on UE bilaterally.). Absent: calf tenderness, edema Results - Labs CBC & BMP: 10/16/16 03:52 10/16/16 03:52 Lab Results: I have reviewed the past 24 hour labs Quality Measures - Stroke Symptom Onset Unknown: No
[2016-10-16] MEDS ORDERED: LIDOCAINE 2% 5 ML VIAL ONE (11:37)
[2016-10-16] MEDS ORDERED: PROPOFOL 200 MG/20 ML VIAL IV ONE (11:37)
--- NOTE | 2016-10-16 11:38 | History and Physical Update ---
History and Physical Update - Physical Exam Mental Status: alert and oriented Heart: regular rate and rhythm Lung: clear to auscultation Abdomen: within normal limits Vitals: within normal limits
--- NOTE | 2016-10-16 11:47 | Operative Note ---
Date of procedure: 10/16/16 Pre-op diagnosis: Epigastric pain with nonsteroidal abuse Procedure: EGD 51-year-old gentleman admitted with nausea vomiting history of nonsteroidal abuse now for EGD to further evaluate for possible peptic acid causes. Informed symptoms obtained patient He was sedated with MAC anesthesia per anesthesia protocol. Patient placed in left lateral decubitus position the Olympus flexible video upper endoscope was inserted into the oral cavity under direct vision the esophagus was intubated. Findings: Esophagus-normal proximal mid esophageal mucosa distal esophagus with moderate hiatal hernia no significant esophagitis, varices, Andrade's or stricture was identified. Stomach-normal insufflation normal mucosa to direct retroflexed views of the body, fundus and cardia is stomach. In the antrum there is some mild prepyloric gastritis no ulcers are seen. Pylorus-normal Duodenum-normal for the bulb and duodenum to the proximal jejunum. The procedure terminated placed our procedure well his discharge recovery in good condition. Postop diagnosis: 1. Gastroesophageal reflux disease-continue PPI treatment antireflux precautions 2. Antral gastritis avoid nonsteroidals continue PPI treatment. Anesthesia: MAC Surgeon / Physician: Adolfo Mackey Estimated blood loss: none Specimens: none sent Condition: stable Disposition: post procedure unit Results - Labs CBC & BMP: 10/16/16 03:52 10/16/16 03:52 Discharge Plan - Discharge Medications No Action Ipratropium/Albuterol Sulfate [Combivent Respimat Inhal [place]] 4 gm IH Q12HR #1 aer.w.adap Meloxicam [Mobic] 7.5 mg PO DAILY PRN PRN Reason: Pain Budesonide/Formoterol 160-4.5 [Symbicort 160-4.5] 2 puff INH BID #1 inhaler Metformin HCl [Glucophage] 1,000 mg PO BID #60 tablet Nicotine 21 mg/24 Hr Patch [Nicoderm CQ 21 mg/24 hr Patch] 1 patch TRANSDERM DAILY #42 patch predniSONE TAB [PredniSONE] 20 mg PO DAILY #30 tablet Albuterol/Ipratropium Neb [Duoneb] 3 ml RESP TX BID PRN PRN Reason: Shortness Of Breath HYDROcodone/ACETAMIN 10-325 [[place] 10-325] 1 tablet PO Q4H PRN #30 tablet PRN Reason: Pain Moderate (4-7) Citalopram [CeleXA] 20 mg PO DAILY #30 tablet - Follow Up or Referral - Forms/Instructions
--- NOTE | 2016-10-16 11:53 | Anesthesia Post-Op ---
Anesthesia Post OP - Post Ansesthetic Evaluation Patient seen in post op: Yes Resp: within normal limits CV: within normal limits Mental: within normal limits Temp: within normal limits [id number]: within normal limits Nausea and Vomiting: within normal limits Pain: within normal limits
--- NOTE | 2016-10-16 12:35 | General Surgery Consult Note ---
Assessment and Plan (1) Abscess of skin or subcutaneous tissue Status: Acute Assessment and plan: MRSA infection of the right upper extremity. It appears the patient has responded well to the local treatment provided. I expect this to continue to improve. Recommend daily changes of packing which can almost be discontinued at this point. Keep the area clean and dry. Clean with Hibiclens and keep covered. Continue MRSA precautions. Patient appears to be responding well to vancomycin. Likely can transition back to Bactrim upon discharge based on sensitivities or to the judgment of the attending physician. At this time, there are no surgical indications. We appreciate this consultation. Please call if there are any changes in the patient's condition Current Visit: Yes Qualifiers: Site of cutaneous abscess of extremity: upper extremity Laterality: right History of Present Illness Chief complaint: Right forearm infection History of present illness: Mr. Rodríguez is a 51 year old male with past medical history of COPD, DEANA, hypertension, and poorly controlled diabetes mellitus currently managed with abdominal pain and elevated lipase who recently also underwent I&D of the right forearm for abscess. The patient reports he actually had the original I&D performed last week at an outside emergency department. At that time he was prescribed Bactrim but did not initially take. The following day he had worsening of his symptoms and return for repeat debridement after which he did get some improvement. Upon his presentation here in the emergency department 3 days ago, he had a repeat debridement and was placed on vancomycin at that time. Cultures obtained here were positive for MRSA. The patient reports significant improvement in the edema, swelling and drainage. He has 2 drainage points distally of the extremity and then 2 more proximal superficial areas which have been receiving wound care. No fever, chills, myalgias or arthralgias. Again, pain and edema are much improved. No neurovascular issues distally. Home Medications Medication Instructions Recorded Confirmed Type Ipratropium/Albuterol Sulfate 4 gm IH Q12HR #1 aer.w.adap 10/24/14 10/13/16 Rx [Combivent Respimat Inhal [place]] Meloxicam [Mobic] 7.5 mg PO DAILY PRN 10/01/16 10/13/16 History Budesonide/Formoterol 160-4.5 2 puff INH BID #1 inhaler 10/03/16 10/13/16 Rx [Symbicort 160-4.5] Citalopram [CeleXA] 20 mg PO DAILY #30 tablet 10/03/16 10/13/16 Rx HYDROcodone/ACETAMIN 10-325 [[place] 1 tablet PO Q4H PRN #30 tablet 10/03/1610/13 Rx 10-325] Metformin HCl [Glucophage] 1,000 mg PO BID #60 tablet 10/03/16 10/13/16 Rx Nicotine 21 mg/24 Hr Patch 1 patch TRANSDERM DAILY #42 patch 10/03/16 10/13/16 Rx [Nicoderm CQ 21 mg/24 hr Patch] predniSONE TAB [PredniSONE] 20 mg PO DAILY #30 tablet 10/03/16 10/13/16 Rx Albuterol/Ipratropium Neb [Duoneb] 3 ml RESP TX BID PRN 10/13/16 10/13/16 History Allergies Allergy/AdvReac Type Severity Reaction Status Date / Time Penicillins Allergy RASH Verified 10/13/16 12:42 Medical,Surgical,& Family Hx - Medical History Cardio: History of: Hypertension, GA (questionable) No history of: Cardiac Dysrhythmia, CHF, CAD, PVD, Valvular Heart Disease Psychological: No history of: Anxiety Disorders, Depression Neurology: History of: Migraine No history of: Dementia, Seizures, TIA HEENT: History of: Eye Problem Endocrine: History of: Diabetes Mellitus (IDDM), Diabetes Mellitus (NIDDM), Dyslipidemia Rheumatology: History of;: Fibromyalgia Respiratory: History of: Bronchitis, COPD, Obstructive Sleep Apnea No history of: Pulmonary Hypertension Renal: No history of: Renal Failure Genitourinary: History of: Kidney Stones, Recurring Urinary Tract Infections No history of: Prostate Problems Gastrointestinal: History of: GERD, Hemorrhoids, Pancreatitis (15 years ago) No history of: Gastrointestinal Bleed, Hepatitis Musculoskeletal: History of: Back/Neck Problems, Musculoskeletal Problems Hematology: No history of: Anemia, Blood Transfusion Reaction Other: No history of: Cancer - Surgical History Cardiac Surgeries: Sugical HX of: Cardiac Catheterization (questionable) Thoracic Surgeries: Surgical HX of;: Lithotripsy Patient denies;: Organ Transplant, Lobectomy Neurologic Surgeries: Patient denies: Neurologic Surgery HEENT Surgeries: Patient denies: Tonsilectomy & Adenoidectomy Abdominal Surgeries: Patient denies: Appendectomy, Cholecystectomy - Family History Family History: Reports;: Family Cancer, Family Diabetes, Family Heart Disease ( Brotherdied at age 49 sudden, massive heart attack), Family Hypertension - Social History Smoking Status: Smoker, status unknown Frequency of Alcohol Use: None Type of Drug Use: None - Constitutional Constitutional: Absent: chills, fever(s) - Gastrointestinal Gastrointestinal: Absent: diarrhea, nausea, vomiting - Genitourinary Genitourinary: Absent: dysuria, flank pain - Musculoskeletal Musculoskeletal: Absent: arthralgias Hematologic/Lymphatic: Absent: easy bleeding, easy bruising Exam - Constitutional Vitals: Period Temp Pulse Resp BP Sys/Randolph Pulse Ox Last 24 Hr 97.4 F-98.5 F 55-93 12-25 139-203/69-96 92-100 General appearance: normal weight, no acute distress - Head Head exam: Present: normal inspection, normocephalic, atraumatic - Eye Eye exam: Absent: conjunctival injection, scleral icterus - Respiratory Respiratory exam: Present: clear to auscultation bilaterally - Cardiovascular Cardiovascular exam: Present: RRR - GI/Abdominal GI/Abdominal exam: Present: normal bowel sounds, soft. Absent: tenderness - Extremities Exam Extremities exam: Present: other (Right upper extremity examined. Again, there are 2 distal lesions which appear to be the site of I&D which are shallow less than 5 or 6 mm in diameter with no tunneling. There is no palpable fluctuance or induration. There is wrinkling of the skin indicating receding edema and minimal residual erythema. Minimally tender at this time. The 2 proximal lesions are superficial excoriations with mild sloughing and fibrinous tissue with minimal surrounding erythema. Again there is no fluctuance or induration. There is no streaking noted. Distally, the digits are warm with brisk capillary refill and no sensory or motor deficits appreciated.) - Neurological Exam Neurological exam: Present: alert, oriented X3 Quality Measures - Stroke Symptom Onset Unknown: No Results - Labs CBC & BMP: 10/16/16 03:52 10/16/16 03:52 Labs: Wound cultures: MRSA sensitive to Vigamox and Bactrim
[2016-10-16] MEDS: ALUMINUM/MAGNES/SIMETH MAX STR 30 ML UDCUP PO PRN (23:33)
[2016-10-17] MEDS: ALBUTEROL/IPRATROPIUM 3 ML NEB RESP TX SCH ×5 (02:50→20:32)
[2016-10-17] MEDS: methylPREDNISolone SOD SUC 40 MG/1 ML VIAL IV SCH ×3 (04:28→15:21)
[2016-10-17] MEDS: VANCOMYCIN INJ 1,250 MG in SODIUM CHLORIDE 0.9% 250 ML IV SCH ×2 (05:27→13:11)
[2016-10-17] MEDS: SODIUM CHLORIDE 0.9% 1,000 ML IV SCH ×3 (05:28→18:24)
[2016-10-17 06:20] LABS: Hematocrit 38.6 VOL% (42.0-52.0); Hemoglobin 12.9 GM/DL (14.0-18.0); Immature Granulocytes % 0.7 %; Immature Granulocytes Absolute 0.04 #; Lymphocytes # 0.6 10*3/uL (1.4-4.0); Lymphocytes % 9.8 % (21.2-54.2); Mean Corpuscular HGB Conc 33.4 GM/DL (32-36); Mean Corpuscular Hemoglobin 33 PG (27-34); Mean Corpuscular Volume 98.7 FL (87-102); Mean Platelet Volume 10.4 FL (9.6-12.0); Monocytes # 0.2 10*3/uL (0.11-0.8); Monocytes % 2.8 % (1.7-12.7); Neutrophils % 86.7 % (38.7-73.9); Platelet Count 178 T/CUMM (130-400); Red Blood Count 3.91 MC/CUMM (3.8-5.5); Red Cell Distribution Width 12.9 % (9.3-17.3); White Blood Count 5.7 T/CUMM (4-12)
[2016-10-17 06:46] LABS: Calcium 8.5 MG/DL (8.5-10.1); Osmolality,Calculated 284.7 MOS/KG (273-304); Potassium 4.1 MMOL/L (3.5-5.1)
[2016-10-17] MEDS: NICOTINE 21 MG/24 HR PATCH TRANSDERM SCH (10:05)
[2016-10-17] MEDS: LEVOFLOXACIN INJ 750 MG in PREMIX 1 EACH IV SCH (10:05)
[2016-10-17] MEDS: BUDESONIDE/FORMOTEROL 160-4.5 INHALER 6 GM INH SCH ×2 (10:10→22:18)
--- NOTE | 2016-10-17 10:14 | Gastrointestinal Progress Note ---
<PopeyeNeelam Rafael - Last Filed: 10/17/16 10:11> Assessment and Plan (1) Elevated lipase Status: Acute Assessment and plan: 10/17-post EGD with findings noted. No reports of abdominal pain, nausea or vomiting. Tolerating soft diet. Discussed cessation of NSAID use. Plan an addendum to follow by Dr. Mackey. 10/15-1 week history of nausea and vomiting with findings of elevated lipase on admission. LFTs unremarkable. Findings of gallstones noted on ultrasound. No complaints of abdominal pain. Tolerating clear liquid diet. Advance to full liquid diet. Consider EGD as inpatient or possibly as outpatient with epigastric complaints and long-term heavy NSAID use. Plan an addendum to follow by Dr. Mackey. Current Visit: Yes Gastroenterology - PN: Subj Interval history: CC: Epigastric pain Patient is seen awake and alert sitting up in bed with at bedside. He is post EGD on yesterday with findings of GERD and antral gastritis. Discussed with patient cessation of using NSAIDs. Patient states he is going to try to discontinue these as well as his smoking. Abdomen is soft, nontender. Patient states that he is tolerating his diet at present time. He receives solid food this morning he states he did have a small bowel movement as well. ROS: Denies shortness of breath or chest pain Exam (Progress Note) - Constitutional Vitals: Period Temp Pulse Resp BP Sys/Randolph Pulse Ox Last 24 Hr 96.9 F-99.1 F 55-91 16-20 125-203/66-98 92-99 General appearance: normal weight, no acute distress - Head Head exam: Present: normal inspection, normocephalic - Eye Eye exam: Present: other (Lids and conjunctivae unremarkable). Absent: scleral icterus - ENT ENT exam: Present: normal exam, normal oropharynx - Neck Neck exam: Present: normal inspection - Respiratory Respiratory exam: Present: clear to auscultation bilaterally. Absent: rales, rhonchi, wheezes - Cardiovascular Cardiovascular exam: Present: regular rate and rhythm. Absent: diastolic murmur , JVD, systolic murmur - GI/Abdominal GI/Abdominal exam: Present: normal bowel sounds, soft. Absent: ascites, distended, mass, organomegaly, tenderness - Extremities Exam Extremities exam: Present: normal inspection, full ROM - Back Exam Back exam: Present: normal inspection - Neurological Exam Neurological exam: Present: alert, oriented X3 - Psychiatric Psychiatric exam: Present: normal affect, normal mood - Skin Skin exam: Present: normal color, warm, dry Results - Labs CBC & BMP: 10/17/16 06:02 10/17/16 06:02 Lab Results: I have reviewed the past 24 hour labs Specialty Discharge - Follow Up or Referrals Follow up with: Nayan Yan MD [Physician] - 10/24/16 10:30 am <Adolfo Mackey - Last Filed: 10/17/16 22:22> Exam (Progress Note) - Constitutional Vitals: Period Temp Pulse Resp BP Sys/Randolph Pulse Ox Last 24 Hr 96.9 F-98.3 F 55-81 17-20 151-189/66-98 94-99 Results - Labs CBC & BMP: 10/17/16 06:02 10/17/16 06:02
--- NOTE | 2016-10-17 11:44 | General Surgery Progress Note ---
Assessment and Plan (1) Abscess of skin or subcutaneous tissue Status: Acute Assessment and plan: MRSA infection of the right upper extremity. Pt continues to improve. Continue MRSA precautions. Updated wound care orders. Encouraged elevation RUE. Patient appears to be responding well to vancomycin. F/u with Dr. Yan on chart. Current Visit: Yes Qualifiers: Site of cutaneous abscess of extremity: upper extremity Laterality: right Subjective Patient reports: Present: no new complaints, feels better, pain is less (No drainage from wounds. ) Exam - Constitutional Vitals: Period Temp Pulse Resp BP Sys/Randolph Pulse Ox Last 24 Hr 96.9 F-99.1 F 55-91 16-20 125-203/66-98 95-99 General appearance: normal weight, no acute distress - Extremities Exam Extremities exam: Present: other (The right forearm with proximal to wounds appear improved with decreased erythema and more dry today. Distal to I&D sites are also clean and dry without purulence after packing removed. No expressible drainage or areas of fluctuance. Minimal residual tenderness and no hyperemia. Distally of the extremity digits are warm with brisk capillary refill. No evidence of streaking.) Results - Labs CBC & BMP: 10/17/16 06:02 10/17/16 06:02 Quality Measures - Stroke Symptom Onset Unknown: No Specialty Discharge - Follow Up or Referrals Follow up with: Nayan Yan MD [Physician] - 10/24/16 10:30 am
[2016-10-17] MEDS ORDERED: GLUCAGON 1 MG VIAL IM PRN (12:14)
[2016-10-17] MEDS ORDERED: MELOXICAM 7.5 MG TABLET PO PRN (12:21)
[2016-10-17] MEDS: INSULIN LISPRO 100 UNIT/ML SUBCUT SCH ×3 (12:50→22:19)
[2016-10-17] MEDS: BACITRACIN OINT 0.9 GM PACK TOP SCH (13:52)
[2016-10-17] MEDS: metFORMIN 500 MG TABLET PO SCH (17:04)
--- NOTE | 2016-10-17 17:32 | Hospitalist Progress Note ---
Assessment and Plan (1) Acute exacerbation of chronic obstructive airways disease Status: Acute Assessment and plan: Continue steroids and nebulizer treatments. 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: without usp use Qualified Code(s): E11.65 - Type 2 diabetes mellitus with hyperglycemia (3) Abscess of skin or subcutaneous tissue Status: Acute Assessment and plan: Continue Bactrim for MRSA infection as an outpatient Current Visit: Yes Qualifiers: Site of cutaneous abscess of extremity: upper extremity Laterality: right (4) Cellulitis Status: Resolved Current Visit: Yes Qualifiers: Site of cellulitis: extremity Site of cellulitis of extremity: upper extremity Laterality: right Qualified Code(s): L03.113 - Cellulitis of right upper limb Hospitalist: Subjective Interval history: Patient seen and examined. No acute events overnight. Case discussed with nursing staff. Labs reviewed. Exam - Constitutional Vitals: Period Temp Pulse Resp BP Sys/Randolph Pulse Ox Last 24 Hr 96.9 F-98.3 F 55-81 17-20 148-189/66-98 94-99 Exam: Constitutional System: No distress. No tremulousness. Head: Normocephalic, atraumatic. Ears, Nose and Throat System: No pain or tenderness. No epistaxis or discharge Eyes System: Pupils equal, round, and reactive. Extraocular muscles intact. Neck: Supple, without adenopathy, No jugular venous distention. No thyromegaly, neck mass, or prior surgery apparent. Respiratory System: Chest clear to auscultation. Cardiovascular System: Heart with regular rate and rhythm. No murmur. GI System: Abdomen soft, nontender. Normo active bowel sounds present. Musculoskeletal System: limbs with no pedal edema. Full distal pulses. Wound on right arm looks good. Packing in place. Surrounding erythema and induration have improved. Neurological System: No discernable sensory deficit. No aphasia Psychiatric System: Conversation is rational Results - Labs CBC & BMP: 10/17/16 06:02 10/17/16 06:02 Lab Results: I have reviewed the past 24 hour labs Quality Measures - Stroke Symptom Onset Unknown: No Specialty Discharge - Follow Up or Referrals Follow up with: Nayan Yan MD [Physician] - 10/24/16 10:30 am
[2016-10-17] MEDS ORDERED: IPRATROPIUM/ALBUTEROL INHALER INH SCH (21:00)
[2016-10-17] MEDS: SULFAMETHOX/TRIMETHOPRIM 800-160 MG TABLET PO SCH (22:18)
[2016-10-17] MEDS: ALUMINUM/MAGNES/SIMETH MAX STR 30 ML UDCUP PO PRN (22:18)
[2016-10-18] MEDS: ALBUTEROL/IPRATROPIUM 3 ML NEB RESP TX SCH ×4 (00:32→11:35)
[2016-10-18] MEDS ORDERED: predniSONE 20 MG TABLET PO SCH (09:00)
[2016-10-18] MEDS ORDERED: CITALOPRAM 20 MG TABLET PO SCH (09:00)
[2016-10-18 09:12] VITALS: BP 151/82
[2016-10-18] MEDS: BACITRACIN OINT 0.9 GM PACK TOP SCH (09:13)
[2016-10-18] MEDS: SULFAMETHOX/TRIMETHOPRIM 800-160 MG TABLET PO SCH (09:13)
[2016-10-18] MEDS: metFORMIN 500 MG TABLET PO SCH (09:13)
[2016-10-18] MEDS: BUDESONIDE/FORMOTEROL 160-4.5 INHALER 6 GM INH SCH (09:14)
[2016-10-18] MEDS: NICOTINE 21 MG/24 HR PATCH TRANSDERM SCH (09:14)
[2016-10-18] MEDS: INSULIN LISPRO 100 UNIT/ML SUBCUT SCH ×2 (09:15→12:48)
--- NOTE | 2016-10-18 09:29 | Discharge Summary ---
Hospital Course - Hospital Course Hospital Course: 51-year-old male admitted to the hospital with a right upper extremity cellulitis and abscess. He underwent incision and drainage by Dr. Burkett. Cultures were positive for methicillin-resistant staph aureus sensitive to Bactrim. The patient also has severe COPD and uncontrolled diabetes. He is noncompliant with medical therapy due to inability to afford medications. He was treated with antibiotics and nebulizer treatments and steroids during the course of this hospitalization. He is being discharged home today in stable condition to follow-up with the [facility] in [place]. He was seen in consultation by case management regarding his inability to afford medications. He was started on the cheapest medications possible. He received new prescriptions for all of his meds. Please see the full discharge medication reconciliation sheet for accurate list of his home medications. The patient is a full code. His spouse is his primary decision maker. He was counseled regarding smoking cessation for approximately 7 minutes. He is in stable condition and will follow up with Dr. Burkett as an outpatient for reevaluation of his wound. - Time spent with patient Time with patient DS: Greater than 30 minutes (Total discharge time for this patient, including [id number] time, clinical documentation, medication reconciliation, and discharge planning was 38 minutes.) Diagnosis - Discharge Diagnosis (1) Acute exacerbation of chronic obstructive airways disease Status: Acute (2) Uncontrolled diabetes mellitus Status: Chronic (3) Abscess of skin or subcutaneous tissue Status: Acute (4) Cellulitis Status: Resolved Specialty Discharge - Follow Up or Referrals Follow up with: Nayan Yan MD [Physician] - 10/24/16 10:30 am Discharge Plan - Discharge Data Disposition: Disch To Home/Self Care Condition at Discharge: Stable Discharge Diet: diabetic diet Activity: resume usual activities as tolerated Hygiene: no restrictions Weight Bearing at Discharge: full weight bearing Driving: no restrictions Contact your physician if you experience:: fever over 101, Bleeding - Discharge Medications New Albuterol Inhaler [Proventil Inhaler] 2 puff INH Q6H PRN #1 inhaler PRN Reason: Shortness Of Breath/Wheezing Sulfameth/Trimeth 800-160 Tab [Bactrim DS Tab] 1 tablet PO BID #10 tablet Continue Ipratropium/Albuterol Sulfate [Combivent Respimat Inhal [place]] 4 gm IH Q12HR #1 aer.w.adap Meloxicam [Mobic] 7.5 mg PO DAILY PRN PRN Reason: Pain Nicotine 21 mg/24 Hr Patch [Nicoderm CQ 21 mg/24 hr Patch] 1 patch TRANSDERM DAILY #42 patch Albuterol/Ipratropium Neb [Duoneb] 3 ml RESP TX BID PRN PRN Reason: Shortness Of Breath Budesonide/Formoterol 160-4.5 [Symbicort 160-4.5] 2 puff INH BID #1 inhaler Citalopram [CeleXA] 20 mg PO DAILY #30 tablet Metformin HCl [Glucophage] 1,000 mg PO BID #60 tablet predniSONE TAB [PredniSONE] 20 mg PO DAILY #30 tablet HYDROcodone/ACETAMIN 10-325 [[place] 10-325] 1 tablet PO Q4H PRN #20 tablet PRN Reason: Pain Moderate (4-7) - Follow Up or Referral Follow Up: Nayan Yan MD [Physician] - 10/24/16 10:30 am - Forms/Instructions Exam - Constitutional Vitals: Period Temp Pulse Resp BP Sys/Randolph Pulse Ox Last 24 Hr 97.3 F-98.1 F 58-81 18-20 126-162/72-93 94-99 Discharge Results Labs on day of discharge: Labs from last 24 hours 10/18/16 10/17/16 10/17/16 07:28 20:32 15:17 POC Glucose 203 H 213 H 301 H 10/17/16 10:54 POC Glucose 357 H DS: Provider Date of admission: 10/13/16 18:08 Primary care physician: . No PCP Attending physician on admission: Dagmar Banda MD Consults: 10/13/16 18:37 Consult to Pharmacy [CONS] Routine Reason for Pharmacy Consult: Dose/Manage Vancomycin 10/13/16 18:40 Consult to Physician [CONS] Routine Comment: nausea, vomiting, elevated lipase Consulting Provider: Adolfo Mackey Consulting Provider Notified: Yes Consult to Specialist Group: Gastroenterology When should Consulting Provider be notified: Now Person Notified: Dr Beverly Date Notified: 10/13/16 Time Notified: 20:18 Consult Notification Comment: states he will see pt in am 10/14/16 JUSTIN IS [employer] SAL[employer] VIT[employer] CONSULTANT TODAY WILL NOTIFY OFFICE.....RP 10/15/16 12:00 Consult to Wound Care - [place] [CONS] Routine Reason for Wound Care: Wound Care Management 10/16/16 09:02 Consult to Physician [CONS] Routine Comment: right arm possible abscess Consulting Provider: Nayan Yan Consulting Provider Notified: Yes Consult to Specialist Group: Surgery When should Consulting Provider be notified: Now Person Notified: Kristyn Date Notified: 10/16/16 Time Notified: 09:13 10/17/16 14:22 Consult to Case Mgmt/Social Srvs [CONS] Routine Reason for Case Mgmt/Social Srvs: Other Consult Comment: assistance with meds Discharging clinician: Shailesh Nixon MD Expected date of discharge: 10/18/16
== END 2016-10-18 12:55 | disposition home or self-care (01) | DRG 602 ==
LOC: N.ED 12:21 → N.EDINP 18:08 → SUATTDRO 18:08 → N.2E 19:39
PROVIDERS: ADMIT Internal Medicine; ATTEND Family Medicine

== ENCOUNTER 2017-10-14 00:51 | Inpatient (IN) ==
[2017-10-14 01:33] LABS: Basophils % 0.5 % (0.0-0.8); Eosinophils # 0.4 10*3/uL (0.0-0.87); Eosinophils % 5.7 % (0.00-10.9); Hematocrit 39.6 VOL% (42.0-52.0); Hemoglobin 13.3 GM/DL (14.0-18.0); Immature Granulocytes % 0.5 %; Immature Granulocytes Absolute 0.03 #; Lymphocytes # 2.4 10*3/uL (1.4-4.0); Lymphocytes % 39.3 % (21.2-54.2); Mean Corpuscular HGB Conc 33.6 GM/DL (32-36); Mean Corpuscular Hemoglobin 33 PG (27-34); Mean Corpuscular Volume 97.8 FL (87-102); Mean Platelet Volume 10.6 FL (9.6-12.0); Monocytes # 0.4 10*3/uL (0.11-0.8); Monocytes % 5.9 % (1.7-12.7); Neutrophils # 2.9 10*3/uL (1.4-7.4); Neutrophils % 48.1 % (38.7-73.9); Platelet Count 172 T/CUMM (130-400); Red Blood Count 4.05 MC/CUMM (3.8-5.5); Red Cell Distribution Width 13.8 % (9.3-17.3); White Blood Count 6.1 T/CUMM (4-12)
[2017-10-14] MEDS ORDERED: HYDROmorphone 2 MG/1 ML VIAL IV STA ×2 (01:43→07:44)
[2017-10-14] MEDS ORDERED: ONDANSETRON 4 MG/2 ML VIAL IV STA ×2 (01:43→07:36)
[2017-10-14] MEDS ORDERED: SODIUM CHLORIDE 0.9% 1,000 ML IV STA (01:43)
[2017-10-14] MEDS ORDERED: PANTOPRAZOLE 40 MG VIAL IV STA (01:47)
[2017-10-14 01:48] LABS: PT Patient Result 10.1 SECS; Partial Thromboplastin Time 25.4 SECS (0-40)
[2017-10-14 01:51] LABS: Alanine Aminotransferase 22 U/L (16-61); Alkaline Phosphatase 106 U/L (45-117); Amylase 76 U/L (25-115); Aspartate Amino Transferase 28 U/L (0-37); Bilirubin,Total < 0.39 MG/DL (0.2-1.0); Blood Urea Nitrogen 17 MG/DL (7-18); Calcium 9.2 MG/DL (8.5-10.1); Glucose 117 MG/DL (74-106); Osmolality,Calculated 281.4 MOS/KG (273-304); Sodium 140 MMOL/L (136-145); Total Protein 6.9 G/DL (6.4-8.3)
[2017-10-14] MEDS ORDERED: ONDANSETRON 4 MG/2 ML VIAL ONE ×3 (02:00→07:37)
[2017-10-14] MEDS ORDERED: PANTOPRAZOLE 40 MG VIAL IV ONE (02:00)
[2017-10-14] MEDS ORDERED: HYDROmorphone 2 MG/1 ML VIAL ONE ×2 (02:01→07:46)
[2017-10-14 02:09] LABS: Lactic Acid 0.8 MMOL/L (0.4-2.0)
[2017-10-14 02:36] LABS: Apearance,Urine CLEAR (Clear); Bilirubin,Urine Negative (Negative); Blood, Urine Small mg/dL (Negative); Glucose,Urine (UA) Negative (Negative); Granular Casts,Urine 1 /LPF (0-1); Hyaline Casts,Urine 1 /LPF (0-3); Ketones,Urine Negative (Negative); Nitrite,Urine Negative (Negative); Protein,Urine Negative; RBC,Urine 3 /HPF (0-4); Squamous Epithelial Cell,Urine Occasional /HPF (0-10); Urine Color Yellow (Yellow); Urine Specific Gravity 1.014 (1.001-1.035); WBC,Urine <1 /HPF (0-6)
[2017-10-14] MEDS ORDERED: NICOTINE 21 MG/24 HR PATCH TRANSDERM PRN (07:48)
[2017-10-14] MEDS ORDERED: GLUCAGON 1 MG VIAL IM PRN (09:27)
[2017-10-14] MEDS ORDERED: DEXTROSE 50% 25 GM/50 ML VIAL IV PRN (09:27)
[2017-10-14] MEDS: ALBUTEROL/IPRATROPIUM 3 ML NEB RESP TX SCH ×3 (10:01→19:16)
[2017-10-14] MEDS: SODIUM CHLORIDE 0.9% 1,000 ML IV SCH ×2 (10:07→21:45)
[2017-10-14 12:39] LABS: Troponin I Only < 0.015 NG/ML (0.00-0.045)
[2017-10-14] MEDS: INSULIN LISPRO 100 UNIT/ML SUBCUT SCH ×3 (13:19→21:46)
[2017-10-14] MEDS: HYDROmorphone 2 MG/1 ML VIAL IV PRN ×3 (15:19→23:59)
[2017-10-14] MEDS: ONDANSETRON 4 MG/2 ML VIAL IV PRN (20:38)
[2017-10-15] MEDS: SODIUM CHLORIDE 0.9% 1,000 ML IV SCH ×3 (00:01→18:20)
[2017-10-15] MEDS: ALBUTEROL/IPRATROPIUM 3 ML NEB RESP TX SCH ×5 (01:13→23:48)
[2017-10-15 04:49] LABS: Basophils % 0.2 % (0.0-0.8); Eosinophils # 0.2 10*3/uL (0.0-0.87); Eosinophils % 2.6 % (0.00-10.9); Hematocrit 37.9 VOL% (42.0-52.0); Hemoglobin 12.6 GM/DL (14.0-18.0); Immature Granulocytes % 0.2 %; Immature Granulocytes Absolute 0.01 #; Lymphocytes # 1.1 10*3/uL (1.4-4.0); Lymphocytes % 16.4 % (21.2-54.2); Mean Corpuscular HGB Conc 33.2 GM/DL (32-36); Mean Corpuscular Hemoglobin 33 PG (27-34); Mean Corpuscular Volume 99.7 FL (87-102); Mean Platelet Volume 10.2 FL (9.6-12.0); Monocytes # 0.4 10*3/uL (0.11-0.8); Monocytes % 5.7 % (1.7-12.7); Neutrophils # 4.9 10*3/uL (1.4-7.4); Neutrophils % 74.9 % (38.7-73.9); Platelet Count 140 T/CUMM (130-400); Red Cell Distribution Width 13.8 % (9.3-17.3); White Blood Count 6.5 T/CUMM (4-12)
[2017-10-15 05:37] LABS: Calcium 8.7 MG/DL (8.5-10.1); Osmolality,Calculated 282.1 MOS/KG (273-304); Potassium 3.9 MMOL/L (3.5-5.1); Risk Ratio 4.55; Thyroid Stimulating Hormone 0.481 uIU/ml (0.358-3.74)
[2017-10-15] MEDS: HYDROmorphone 2 MG/1 ML VIAL IV PRN ×3 (07:58→17:03)
[2017-10-15] MEDS: INSULIN LISPRO 100 UNIT/ML SUBCUT SCH ×4 (08:03→22:32)
[2017-10-15] MEDS: ONDANSETRON 4 MG/2 ML VIAL IV PRN ×4 (09:09→22:20)
[2017-10-15] MEDS ORDERED: REGADENOSON 0.4 MG/5 ML SYRINGE IV ONE (09:16)
[2017-10-15] MEDS ORDERED: hydrALAZINE 20 MG/1 ML VIAL IV PRN (09:42)
[2017-10-15] MEDS ORDERED: SUMAtriptan 25 MG TABLET PO PRN (10:56)
[2017-10-15] MEDS: SUMAtriptan 6 MG/0.5 ML VIAL SUBCUT PRN ×2 (17:14→22:20)
[2017-10-16] MEDS: SODIUM CHLORIDE 0.9% 1,000 ML IV SCH ×3 (02:20→22:06)
[2017-10-16 06:21] LABS: Basophils % 0.3 % (0.0-0.8); Eosinophils # 0.3 10*3/uL (0.0-0.87); Eosinophils % 3.8 % (0.00-10.9); Hematocrit 35.3 VOL% (42.0-52.0); Hemoglobin 11.8 GM/DL (14.0-18.0); Immature Granulocytes % 0.5 %; Immature Granulocytes Absolute 0.03 #; Lymphocytes # 1.2 10*3/uL (1.4-4.0); Lymphocytes % 18.3 % (21.2-54.2); Mean Corpuscular HGB Conc 33.4 GM/DL (32-36); Mean Corpuscular Hemoglobin 33 PG (27-34); Mean Corpuscular Volume 98.1 FL (87-102); Mean Platelet Volume 10.3 FL (9.6-12.0); Monocytes # 0.5 10*3/uL (0.11-0.8); Monocytes % 7.1 % (1.7-12.7); Neutrophils # 4.7 10*3/uL (1.4-7.4); Platelet Count 128 T/CUMM (130-400); Red Cell Distribution Width 13.3 % (9.3-17.3); White Blood Count 6.7 T/CUMM (4-12)
[2017-10-16 06:48] LABS: Calcium 8.4 MG/DL (8.5-10.1); Osmolality,Calculated 275.5 MOS/KG (273-304); Potassium 3.7 MMOL/L (3.5-5.1)
[2017-10-16] MEDS: ALBUTEROL/IPRATROPIUM 3 ML NEB RESP TX SCH ×4 (07:16→23:47)
[2017-10-16] MEDS: HYDROmorphone 2 MG/1 ML VIAL IV PRN ×6 (08:01→19:53)
[2017-10-16] MEDS: INSULIN LISPRO 100 UNIT/ML SUBCUT SCH ×4 (08:39→22:07)
[2017-10-16] MEDS ORDERED: LEVOFLOXACIN INJ 500 MG in PREMIX 1 EACH IV ONE (10:00)
[2017-10-16] MEDS ORDERED: METHOCARBAMOL INJ 1,000 MG in SODIUM CHLORIDE 0.9% 100 ML IV ONE (10:30)
[2017-10-16] MEDS ORDERED: MICROFIBRILLAR COLLAGEN POWDER 1 GM CAN TOP ONE (12:27)
[2017-10-16] MEDS ORDERED: DESFLURANE 1 UNIT/15 MINUTE INH ONE (13:12)
[2017-10-16] MEDS ORDERED: MIDAZOLAM 2 MG/2 ML VIAL ONE (13:12)
[2017-10-16] MEDS ORDERED: PROPOFOL 200 MG/20 ML VIAL IV ONE (13:12)
[2017-10-16] MEDS ORDERED: fentaNYL 100 MCG/2 ML VIAL ONE (13:13)
[2017-10-16] MEDS ORDERED: ONDANSETRON 4 MG/2 ML VIAL ONE ×2 (13:13→13:14)
[2017-10-16] MEDS ORDERED: DEXAMETHASONE 10 MG/1 ML VIAL ONE (13:13)
[2017-10-16] MEDS ORDERED: ACETAMINOPHEN 1,000 MG/100 ML VIAL IV ONE (13:13)
[2017-10-16] MEDS ORDERED: METOPROLOL TARTRATE 5 MG/5 ML VIAL IV ONE (13:13)
[2017-10-16] MEDS ORDERED: NEOSTIGMINE 10 MG/10 ML VIAL ONE (13:13)
[2017-10-16] MEDS ORDERED: GLYCOPYRROLATE 0.4 MG/2 ML VIAL ONE (13:13)
[2017-10-16] MEDS ORDERED: SUCCINYLCHOLINE 200 MG/10 ML VIAL ONE (13:13)
[2017-10-16] MEDS ORDERED: ROCURONIUM 100 MG/10 ML VIAL IV ONE (13:13)
[2017-10-16] MEDS ORDERED: HYDROmorphone 2 MG/1 ML VIAL ONE (13:14)
[2017-10-16] MEDS ORDERED: LACTATED RINGERS 1,000 ML IV ONE (13:14)
[2017-10-16] MEDS ORDERED: ONDANSETRON 4 MG/2 ML VIAL IV PRN (13:18)
[2017-10-16] MEDS: ONDANSETRON 4 MG/2 ML VIAL IV PRN (20:03)
[2017-10-17] MEDS: HYDROmorphone 2 MG/1 ML VIAL IV PRN ×6 (03:58→22:19)
[2017-10-17 06:32] LABS: Hemoglobin 11.2 GM/DL (14.0-18.0); Immature Granulocytes % 0.4 %; Immature Granulocytes Absolute 0.03 #; Lymphocytes # 0.8 10*3/uL (1.4-4.0); Mean Corpuscular HGB Conc 33.9 GM/DL (32-36); Mean Corpuscular Hemoglobin 33 PG (27-34); Mean Corpuscular Volume 97.6 FL (87-102); Mean Platelet Volume 10.6 FL (9.6-12.0); Monocytes # 0.7 10*3/uL (0.11-0.8); Monocytes % 8.7 % (1.7-12.7); Neutrophils # 6.3 10*3/uL (1.4-7.4); Neutrophils % 80.9 % (38.7-73.9); Platelet Count 161 T/CUMM (130-400); Red Blood Count 3.38 MC/CUMM (3.8-5.5); Red Cell Distribution Width 13.3 % (9.3-17.3); White Blood Count 7.8 T/CUMM (4-12)
[2017-10-17] MEDS: ALBUTEROL/IPRATROPIUM 3 ML NEB RESP TX SCH ×3 (07:11→19:31)
[2017-10-17 07:14] LABS: Blood Urea Nitrogen 16 MG/DL (7-18); Calcium 8.5 MG/DL (8.5-10.1); Glucose 144 MG/DL (74-106); Osmolality,Calculated 276.8 MOS/KG (273-304); Potassium 4.2 MMOL/L (3.5-5.1); Sodium 137 MMOL/L (136-145); Troponin I Only < 0.015 NG/ML (0.00-0.045)
[2017-10-17] MEDS: SODIUM CHLORIDE 0.9% 1,000 ML IV SCH ×2 (07:40→15:46)
[2017-10-17] MEDS: INSULIN LISPRO 100 UNIT/ML SUBCUT SCH ×4 (08:50→20:48)
[2017-10-18] MEDS: ALBUTEROL/IPRATROPIUM 3 ML NEB RESP TX SCH ×4 (00:09→20:36)
[2017-10-18] MEDS: SODIUM CHLORIDE 0.9% 1,000 ML IV SCH ×4 (03:00→23:37)
[2017-10-18] MEDS: HYDROmorphone 2 MG/1 ML VIAL IV PRN ×5 (03:33→20:15)
[2017-10-18 06:05] LABS: Basophils % 0.1 % (0.0-0.8); Eosinophils % 0.5 % (0.00-10.9); Hematocrit 30.8 VOL% (42.0-52.0); Hemoglobin 10.8 GM/DL (14.0-18.0); Immature Granulocytes % 0.5 %; Immature Granulocytes Absolute 0.04 #; Lymphocytes % 12.1 % (21.2-54.2); Mean Corpuscular HGB Conc 35.1 GM/DL (32-36); Mean Corpuscular Hemoglobin 33 PG (27-34); Mean Corpuscular Volume 95.1 FL (87-102); Mean Platelet Volume 10.4 FL (9.6-12.0); Monocytes # 0.7 10*3/uL (0.11-0.8); Monocytes % 8.4 % (1.7-12.7); Neutrophils # 6.4 10*3/uL (1.4-7.4); Neutrophils % 78.4 % (38.7-73.9); Platelet Count 197 T/CUMM (130-400); Red Blood Count 3.24 MC/CUMM (3.8-5.5); Red Cell Distribution Width 13.5 % (9.3-17.3); White Blood Count 8.2 T/CUMM (4-12)
[2017-10-18 06:17] LABS: Calcium 8.5 MG/DL (8.5-10.1); Osmolality,Calculated 271.1 MOS/KG (273-304); Potassium 3.9 MMOL/L (3.5-5.1)
[2017-10-18] MEDS: INSULIN LISPRO 100 UNIT/ML SUBCUT SCH ×4 (07:32→20:14)
[2017-10-18] MEDS: ENOXAPARIN 40 MG/0.4 ML SYRINGE SUBCUT SCH (09:26)
[2017-10-18] MEDS: ASPIRIN EC 81 MG TABLET PO SCH (09:26)
[2017-10-18] MEDS: LISINOPRIL 10 MG TABLET PO SCH (09:26)
[2017-10-18] MEDS ORDERED: ACETAMINOPHEN 325 MG TABLET PO PRN (20:33)
[2017-10-19] MEDS: ALBUTEROL/IPRATROPIUM 3 ML NEB RESP TX SCH ×2 (01:16→06:55)
[2017-10-19 04:01] LABS: Basophils % 0.3 % (0.0-0.8); Eosinophils # 0.1 10*3/uL (0.0-0.87); Eosinophils % 0.8 % (0.00-10.9); Hematocrit 30.2 VOL% (42.0-52.0); Immature Granulocytes % 0.3 %; Immature Granulocytes Absolute 0.02 #; Lymphocytes # 1.2 10*3/uL (1.4-4.0); Lymphocytes % 16.2 % (21.2-54.2); Mean Corpuscular HGB Conc 33.1 GM/DL (32-36); Mean Corpuscular Hemoglobin 32 PG (27-34); Mean Corpuscular Volume 97.1 FL (87-102); Mean Platelet Volume 10.7 FL (9.6-12.0); Monocytes # 0.7 10*3/uL (0.11-0.8); Monocytes % 9.1 % (1.7-12.7); Neutrophils # 5.4 10*3/uL (1.4-7.4); Neutrophils % 73.3 % (38.7-73.9); Platelet Count 198 T/CUMM (130-400); Red Blood Count 3.11 MC/CUMM (3.8-5.5); Red Cell Distribution Width 13.2 % (9.3-17.3); White Blood Count 7.3 T/CUMM (4-12)
[2017-10-19 04:28] LABS: Calcium 8.3 MG/DL (8.5-10.1); Osmolality,Calculated 272.8 MOS/KG (273-304); Potassium 3.5 MMOL/L (3.5-5.1)
[2017-10-19] MEDS: INSULIN LISPRO 100 UNIT/ML SUBCUT SCH ×2 (07:37→12:19)
[2017-10-19] MEDS: ASPIRIN EC 81 MG TABLET PO SCH (08:11)
[2017-10-19] MEDS: LISINOPRIL 10 MG TABLET PO SCH (08:11)
[2017-10-19] MEDS: HYDROmorphone 2 MG/1 ML VIAL IV PRN ×2 (08:11→12:09)
[2017-10-19] MEDS: ENOXAPARIN 40 MG/0.4 ML SYRINGE SUBCUT SCH (08:11)
[2017-10-19 11:50] VITALS: BP 163/104
== END 2017-10-19 13:02 | disposition home or self-care (01) | DRG 331 ==
LOC: N.ED 00:51 → N.EDINP 07:26 → N.2E 09:03
PROVIDERS: ADMIT Internal Medicine; ATTEND Internal Medicine

== ENCOUNTER 2018-04-24 15:53 | Observation (INO) ==
[2018-04-24] MEDS ORDERED: ASPIRIN 325 MG TABLET PO STA (16:22)
[2018-04-24] MEDS ORDERED: ALBUTEROL/IPRATROPIUM 3 ML NEB RESP TX STA (16:22)
[2018-04-24] MEDS ORDERED: ENOXAPARIN 100 MG/ML SYRINGE SUBCUT STA (16:22)
[2018-04-24 16:31] LABS: Basophils % 0.4 % (0.0-0.8); Eosinophils # 0.3 10*3/uL (0.0-0.87); Eosinophils % 4.1 % (0.00-10.9); Hemoglobin 13.1 GM/DL (14.0-18.0); Immature Granulocytes % 0.3 %; Immature Granulocytes Absolute 0.02 #; Lymphocytes # 1.8 10*3/uL (1.4-4.0); Lymphocytes % 26.3 % (21.2-54.2); Mean Corpuscular HGB Conc 33.6 GM/DL (32-36); Mean Corpuscular Hemoglobin 32 PG (27-34); Mean Corpuscular Volume 96.5 FL (87-102); Mean Platelet Volume 10.8 FL (9.6-12.0); Monocytes # 0.4 10*3/uL (0.11-0.8); Neutrophils # 4.3 10*3/uL (1.4-7.4); Neutrophils % 62.9 % (38.7-73.9); Platelet Count 195 T/CUMM (130-400); Red Blood Count 4.04 MC/CUMM (3.8-5.5); Red Cell Distribution Width 13.6 % (9.3-17.3); White Blood Count 6.9 T/CUMM (4-12)
[2018-04-24 17:08] LABS: Alanine Aminotransferase 22 U/L (16-61); Albumin 3.9 G/DL (3.4-5.0); Alkaline Phosphatase 117 U/L (45-117); Aspartate Amino Transferase 26 U/L (0-37); Bilirubin,Total < 0.39 MG/DL (0.2-1.0); Blood Urea Nitrogen 16 MG/DL (7-18); Glucose 166 MG/DL (74-106); Osmolality,Calculated 285.3 MOS/KG (273-304); Sodium 141 MMOL/L (136-145); Total Protein 7.3 G/DL (6.4-8.3)
[2018-04-24] MEDS ORDERED: ALBUTEROL 2.5 MG/3 ML NEB RESP TX PRN ×2 (18:13)
[2018-04-24] MEDS ORDERED: GLUCAGON 1 MG VIAL IM PRN (18:40)
[2018-04-24] MEDS ORDERED: DEXTROSE 50% 25 GM/50 ML VIAL IV PRN (18:40)
[2018-04-24] MEDS ORDERED: ACETAMINOPHEN 325 MG TABLET PO PRN (18:40)
[2018-04-24] MEDS ORDERED: CYCLOBENZAPRINE 10 MG TABLET PO PRN (18:57)
[2018-04-24] MEDS ORDERED: INFLUENZA VIRUS VACCINE 0.5 ML SYRINGE IM ONE (22:22)
[2018-04-24] MEDS: CELECOXIB 100 MG CAPSULE PO SCH (22:41)
[2018-04-24] MEDS: methylPREDNISolone SOD SUC 40 MG/1 ML VIAL IV SCH (22:42)
[2018-04-24] MEDS: metFORMIN 500 MG TABLET PO SCH (22:42)
[2018-04-24] MEDS: INSULIN REGULAR 100 UNIT/ML SUBCUT SCH (22:42)
[2018-04-24] MEDS: IBUPROFEN 800 MG TABLET PO ONE ×2 (22:42→22:55)
[2018-04-25] MEDS ORDERED: GABAPENTIN 300 MG CAPSULE PO ONE (00:29)
[2018-04-25] MEDS ORDERED: KETOROLAC 30 MG/1 ML VIAL IV ONE (00:29)
[2018-04-25] MEDS: NICOTINE 21 MG/24 HR PATCH TRANSDERM SCH ×2 (00:29→10:28)
[2018-04-25 06:31] LABS: Basophils % 0.3 % (0.0-0.8); Eosinophils % 0.3 % (0.00-10.9); Hematocrit 38.1 VOL% (42.0-52.0); Hemoglobin 12.5 GM/DL (14.0-18.0); Immature Granulocytes % 0.5 %; Immature Granulocytes Absolute 0.03 #; Lymphocytes # 0.7 10*3/uL (1.4-4.0); Mean Corpuscular HGB Conc 32.8 GM/DL (32-36); Mean Corpuscular Hemoglobin 31 PG (27-34); Mean Corpuscular Volume 95.7 FL (87-102); Mean Platelet Volume 10.8 FL (9.6-12.0); Monocytes # 0.1 10*3/uL (0.11-0.8); Monocytes % 0.9 % (1.7-12.7); Neutrophils # 5.7 10*3/uL (1.4-7.4); Platelet Count 169 T/CUMM (130-400); Red Blood Count 3.98 MC/CUMM (3.8-5.5); Red Cell Distribution Width 13.5 % (9.3-17.3); White Blood Count 6.5 T/CUMM (4-12)
[2018-04-25 07:15] LABS: Calcium 8.8 MG/DL (8.5-10.1); Osmolality,Calculated 281.7 MOS/KG (273-304); Potassium 4.1 MMOL/L (3.5-5.1); Thyroid Stimulating Hormone 0.731 uIU/ml (0.358-3.74)
[2018-04-25] MEDS ORDERED: CITALOPRAM 20 MG TABLET PO SCH (09:00)
[2018-04-25] MEDS ORDERED: LISINOPRIL 10 MG TABLET PO SCH (09:00)
[2018-04-25] MEDS ORDERED: ASPIRIN EC 81 MG TABLET PO SCH (09:00)
[2018-04-25] MEDS ORDERED: PANTOPRAZOLE 40 MG TABLET PO SCH (09:00)
[2018-04-25] MEDS: INSULIN REGULAR 100 UNIT/ML SUBCUT SCH ×3 (10:12→15:40)
[2018-04-25] MEDS: methylPREDNISolone SOD SUC 40 MG/1 ML VIAL IV SCH (10:29)
[2018-04-25] MEDS: CELECOXIB 100 MG CAPSULE PO SCH (12:41)
[2018-04-25] MEDS: metFORMIN 500 MG TABLET PO SCH (14:20)
[2018-04-25] MEDS ORDERED: DICLOFENAC 1% GEL 100 GM TUBE TOP SCH (15:00)
[2018-04-25 16:01] VITALS: BP 153/87
== END 2018-04-25 17:34 | disposition home or self-care (01) ==
LOC: N.EDINP 15:53 → N.ED 15:53 → N.TELEN 19:18
PROVIDERS: ADMIT Hospitalist; ATTEND Hospitalist

== ENCOUNTER 2018-10-21 18:18 | Observation (INO) ==
[2018-10-21 18:50] LABS: Basophils % 0.6 % (0.0-0.8); Eosinophils # 0.1 10*3/uL (0.0-0.87); Eosinophils % 2.8 % (0.00-10.9); Hematocrit 38.7 VOL% (42.0-52.0); Hemoglobin 12.7 GM/DL (14.0-18.0); Immature Granulocytes % 0.4 %; Immature Granulocytes Absolute 0.02 #; Lymphocytes # 1.6 10*3/uL (1.4-4.0); Mean Corpuscular HGB Conc 32.8 GM/DL (32-36); Mean Platelet Volume 10.6 FL (9.6-12.0); Monocytes % 5.7 % (1.7-12.7); Neutrophils % 58.5 % (38.7-73.9); Platelet Count 150 T/CUMM (130-400); Red Blood Count 4.03 MC/CUMM (3.8-5.5); Red Cell Distribution Width 14.3 % (9.3-17.3); White Blood Count 5.1 T/CUMM (4-12)
[2018-10-21 18:55] LABS: Apearance,Urine CLEAR (Clear); Bilirubin,Urine Negative (Negative); Blood, Urine Moderate mg/dL (Negative); Glucose,Urine (UA) Negative (Negative); Hyaline Casts,Urine 3 /LPF (0-3); Ketones,Urine 5 mg/dL (Negative); Mucus,Urine Many /LPF (Occasional); Nitrite,Urine Negative (Negative); Protein,Urine 100 MG/DL; RBC,Urine 5 /HPF (0-4); Urine Color Amber (Yellow); Urine Urobilinogen < 2.0 EU/DL (0.2-1.0); WBC,Urine 1 /HPF (0-6)
[2018-10-21 18:58] LABS: Partial Thromboplastin Time 24.1 SECS (0-40)
[2018-10-21 19:03] LABS: Barbiturates Screen,Urine Negative (Negative); Benzodiazepines Screen,Urine Negative (Negative); Cannabinoid Screen,Urine Negative (Negative); Opiate Screen,Urine Negative (Negative); Phencyclidine Screen,Urine Negative (Negative)
[2018-10-21 19:16] LABS: Alanine Aminotransferase 18 U/L (16-61); Albumin 4.3 G/DL (3.4-5.0); Alkaline Phosphatase 96 U/L (45-117); Aspartate Amino Transferase 16 U/L (0-37); Bilirubin,Total < 0.39 MG/DL (0.2-1.0); Blood Urea Nitrogen 19 MG/DL (7-18); Calcium 8.6 MG/DL (8.5-10.1); Glucose 104 MG/DL (74-106); Total Protein 6.9 G/DL (6.4-8.3)
[2018-10-21] MEDS ORDERED: methylPREDNISolone SOD SUC 125 MG/2 ML VIAL IV STA (19:36)
[2018-10-21] MEDS ORDERED: CLINDAMYCIN INJ 600 MG in PREMIX 1 EACH IV STA (19:36)
[2018-10-21] MEDS ORDERED: DIPH/TET/ACEL PERT BOOSTER VACCINE 0.5 ML VIAL IM ONE (19:36)
[2018-10-21] MEDS ORDERED: ALBUTEROL 2.5 MG/3 ML NEB RESP TX SCH (20:00)
[2018-10-21] MEDS ORDERED: ONDANSETRON 4 MG/2 ML VIAL IV PRN (21:07)
[2018-10-21] MEDS ORDERED: diphenhydrAMINE CAP 25 MG CAPSULE PO PRN (21:07)
[2018-10-21] MEDS ORDERED: MORPHINE 4 MG/1 ML VIAL IV PRN (21:07)
[2018-10-21] MEDS ORDERED: NICOTINE 21 MG/24 HR PATCH TRANSDERM PRN (21:07)
[2018-10-21] MEDS: ACETAMINOPHEN 325 MG TABLET PO PRN (22:53)
[2018-10-21 22:59] LABS: Risk Ratio 4.56; Thyroid Stimulating Hormone 1.47 uIU/ml (0.358-3.74); VLDL CHOLESTEROL 24.8 MG/DL
[2018-10-22] MEDS: ALBUTEROL/IPRATROPIUM 3 ML NEB RESP TX SCH ×4 (02:04→19:31)
[2018-10-22 05:49] LABS: Troponin I < 0.015 NG/ML (0.00-0.045)
[2018-10-22] MEDS: ACETAMINOPHEN 325 MG TABLET PO PRN ×2 (09:42→18:34)
[2018-10-22] MEDS: PANTOPRAZOLE 40 MG TABLET PO SCH (09:43)
[2018-10-22] MEDS: methylPREDNISolone SOD SUC 40 MG/1 ML VIAL IV SCH ×2 (09:43→20:49)
[2018-10-22] MEDS ORDERED: DEXTROSE 50% 25 GM/50 ML SYRINGE IV PRN (10:50)
[2018-10-22] MEDS ORDERED: GLUCAGON 1 MG VIAL IM PRN (10:50)
[2018-10-22 11:31] LABS: Troponin I < 0.015 NG/ML (0.00-0.045)
[2018-10-22] MEDS: MONTELUKAST 10 MG TABLET PO SCH (13:10)
[2018-10-22] MEDS: AZITHROMYCIN 250 MG TABLET PO SCH (13:10)
[2018-10-22] MEDS: ASPIRIN EC 325 MG TABLET PO SCH (13:35)
[2018-10-22] MEDS: INSULIN REGULAR 100 UNIT/ML SUBCUT SCH ×3 (14:39→23:50)
[2018-10-22] MEDS: metFORMIN 500 MG TABLET PO SCH (18:34)
[2018-10-22 18:40] LABS: Troponin I < 0.015 NG/ML (0.00-0.045)
[2018-10-22] MEDS: TOPIRAMATE 25 MG TABLET PO SCH (20:48)
[2018-10-22] MEDS ORDERED: ATORVASTATIN 80 MG TABLET PO SCH (21:00)
[2018-10-23] MEDS: ALBUTEROL/IPRATROPIUM 3 ML NEB RESP TX SCH ×2 (00:09→07:45)
[2018-10-23] MEDS: PANTOPRAZOLE 40 MG TABLET PO SCH (08:27)
[2018-10-23] MEDS: AZITHROMYCIN 250 MG TABLET PO SCH (08:27)
[2018-10-23] MEDS: ASPIRIN EC 325 MG TABLET PO SCH (08:28)
[2018-10-23] MEDS: TOPIRAMATE 25 MG TABLET PO SCH (08:28)
[2018-10-23] MEDS: INSULIN REGULAR 100 UNIT/ML SUBCUT SCH ×2 (08:28→11:57)
[2018-10-23] MEDS: metFORMIN 500 MG TABLET PO SCH (08:28)
[2018-10-23] MEDS: MONTELUKAST 10 MG TABLET PO SCH (08:28)
[2018-10-23] MEDS: methylPREDNISolone SOD SUC 40 MG/1 ML VIAL IV SCH (08:28)
[2018-10-23] MEDS ORDERED: LISINOPRIL/HCTZ 10-12.5 MG TABLET PO SCH (09:00)
[2018-10-23 12:04] VITALS: BP 142/80
== END 2018-10-23 14:10 | disposition home or self-care (01) ==
LOC: N.ED 18:18 → N.EDINP 18:18 → N.2E 23:06
PROVIDERS: ADMIT Internal Medicine; ATTEND Internal Medicine

== ENCOUNTER 2019-09-11 00:52 | Observation (INO) ==
[2019-09-11] MEDS ORDERED: KETOROLAC 30 MG/1 ML VIAL IV STA (01:19)
[2019-09-11] MEDS ORDERED: ASPIRIN 325 MG TABLET PO STA (01:19)
[2019-09-11] MEDS ORDERED: ONDANSETRON 4 MG/2 ML VIAL IV STA (01:19)
[2019-09-11 01:55] LABS: Basophils % 0.3 % (0.0-0.8); Eosinophils # 0.2 10*3/uL (0.0-0.87); Eosinophils % 3.6 % (0.00-10.9); Hematocrit 42.8 VOL% (42.0-52.0); Hemoglobin 14.2 GM/DL (14.0-18.0); Immature Granulocytes % 0.3 %; Immature Granulocytes Absolute 0.02 #; Lymphocytes # 1.8 10*3/uL (1.4-4.0); Lymphocytes % 27.3 % (21.2-54.2); Mean Corpuscular HGB Conc 33.2 GM/DL (32-36); Mean Corpuscular Volume 98.2 FL (87-102); Mean Platelet Volume 11.1 FL (9.6-12.0); Monocytes % 5.9 % (1.7-12.7); Neutrophils % 62.6 % (38.7-73.9); Platelet Count 197 T/CUMM (130-400); Red Blood Count 4.36 MC/CUMM (3.8-5.5); Red Cell Distribution Width 13.5 % (9.3-17.3); White Blood Count 6.4 T/CUMM (4-12)
[2019-09-11 02:08] LABS: PT Patient Result 10.4 SECS (9.6-12.2)
[2019-09-11 02:16] LABS: Troponin I < 0.015 NG/ML (0.00-0.045)
[2019-09-11 02:31] LABS: Alanine Aminotransferase 20 U/L (16-61); Albumin 3.9 G/DL (3.4-5.0); Alkaline Phosphatase 73 U/L (45-117); Aspartate Amino Transferase 14 U/L (0-37); Bilirubin,Total < 0.39 MG/DL (0.2-1.0); Blood Urea Nitrogen 22 MG/DL (7-18); Calcium 8.3 MG/DL (8.5-10.1); Estimated Glom Filtration Rate 63 ML/MIN; Glucose 98 MG/DL (74-106); Osmolality,Calculated 283.3 MOS/KG (273-304); Total Protein 6.9 G/DL (6.4-8.3)
[2019-09-11] MEDS ORDERED: POTASSIUM CHLORIDE 20 MEQ TABLET PO STA (02:33)
[2019-09-11 03:19] LABS: Apearance,Urine CLEAR (Clear); Bilirubin,Urine Negative (Negative); Blood, Urine Negative (Negative); Glucose,Urine (UA) Negative (Negative); Ketones,Urine 5 mg/dL (Negative); Mucus,Urine Occasional /LPF (Occasional); Nitrite,Urine Negative (Negative); Protein,Urine Negative; RBC,Urine 4 /HPF (0-4); Renal Epithelial Cells,Urine Occasional /HPF (<1); Urine Color Yellow (Yellow); Urine Specific Gravity 1.028 (1.001-1.035); WBC,Urine 1 /HPF (0-6)
[2019-09-11 03:24] LABS: Barbiturates Screen,Urine Negative (Negative); Benzodiazepines Screen,Urine Negative (Negative); Cannabinoid Screen,Urine Negative (Negative); Opiate Screen,Urine Negative (Negative); Phencyclidine Screen,Urine Negative (Negative)
[2019-09-11] MEDS ORDERED: guaiFENesin/DM ER 600-30 MG TABLET PO PRN (03:30)
[2019-09-11] MEDS ORDERED: MORPHINE 4 MG/1 ML VIAL IV PRN (03:30)
[2019-09-11] MEDS ORDERED: ONDANSETRON 4 MG/2 ML VIAL IV PRN (03:30)
[2019-09-11] MEDS ORDERED: ALBUTEROL/IPRATROPIUM 3 ML NEB RESP TX PRN (03:30)
[2019-09-11] MEDS ORDERED: ALUMINUM/MAGNES/SIMETH MAX STR 30 ML UDCUP PO PRN (03:30)
[2019-09-11] MEDS ORDERED: ACETAMINOPHEN 325 MG TABLET PO PRN (03:30)
[2019-09-11] MEDS ORDERED: diphenhydrAMINE CAP 25 MG CAPSULE PO PRN (03:30)
[2019-09-11] MEDS ORDERED: NICOTINE 21 MG/24 HR PATCH TRANSDERM PRN (03:30)
[2019-09-11] MEDS ORDERED: hydrALAZINE 20 MG/1 ML VIAL IV PRN (03:30)
[2019-09-11 05:15] LABS: Risk Ratio 4.04; Thyroid Stimulating Hormone 0.67 uIU/ml (0.358-3.74); VLDL CHOLESTEROL 61.4 MG/DL
[2019-09-11 15:59] VITALS: BP 107/65
[2019-09-11] MEDS ORDERED: SODIUM CHLORIDE 0.9% 1,000 ML IV SCH (16:30)
[2019-09-11] MEDS ORDERED: ATORVASTATIN 20 MG TABLET PO SCH (21:00)
== END 2019-09-11 18:43 | disposition home or self-care (01) ==
LOC: EDBD → EDUNIT# → N.EDINP 00:52 → N.ED 00:52 → N.4E 05:29
PROVIDERS: ADMIT Internal Medicine; ATTEND Internal Medicine